=== PATIENT | male | born 1955 | race Caucasian/White ===

== ENCOUNTER 2016-09-17 12:41 | Emergency (ER) | payer OTHER ==
[2016-09-17 13:06] VITALS: RESP 16; TEMP 97.2
--- NOTE | 2016-09-17 15:40 | PDOC ---
General Adult HPI - General Chief Complaint: General Medical Stated Complaint: ran out of medications Date Seen by Provider: 09/17/16 Time Seen by Provider: 12:50 Source: POSITIVE: Patient Exam Limitations: POSITIVE: No limitations Nurse's Notes Reviewed & Considered: Yes - History of Present Illness Initial Comment: The patient is a 60-year-old male. He states he has just moved to [place] from [place]. He takes a variety of medications for depression and back pain, including gabapentin 60 mg twice daily, Depakote 500 mg 3 times daily, aspirin 81 mg daily, Flexeril 5 mg at night, venlafaxine 75 mg tablets, 2 in the morning and 3 in the evening, trazodone 100 mg at night and Nexium in the morning. He states he has a history of GERD. He states he may possibly have a seizure disorder. Patient states that he ran out of his venlafaxine and Flexeril and requests a refill in quantities sufficient for a few days until he can follow-up with a primary care provider. He states he is asymptomatic at this time. He simply wants a refill of his venlafaxine on Flexeril as above. Have you received a tetanus shot in the past 10 years?: Yes Body Location Affected: REPORTS: Other (As above) Timing: REPORTS: Other (Patient asymptomatic at this time.) Duration: Other (Out of his prescriptions as above for 1 day) Quality: REPORTS: Other (No pain anywhere) Context: DENIES: None, Sitting, Standing, Activity, Emotional stress, Coughing, Recent Trauma, Recent Surgery, Sleep, Rest, Lifting, Turning, Bending, Fall, Near Fall, Other Modifying Factors: worse with: Nothing, Analgesics, Antacids, Breathing, Coughing, Defecating, Vomiting, Eating, Exercise, Lying down, Urinating, Palpation, Movement, Rest, Upright Position, Walking, Remaining Still, Other Similar Symptoms Previously: No Recent Care Received: REPORTS: Denies Any Prior Injuries Related to Current Complaint?: No - Patient Home Medications Home Medications: Home Medications Aspirin [Aspir-Low] 81 mg PO DAILY 09/17/16 Cyclobenzaprine HCl [Flexeril] 5 mg PO BEDTIME #5 tablet 09/17/16 Cyclobenzaprine HCl [Flexeril] 5 mg PO BEDTIME PRN 09/17/16 Divalproex Sodium [Depakote] 500 mg PO TID 09/17/16 Esomeprazole Magnesium [Nexium 24Hr] 22.3 mg PO DAILY 09/17/16 Trazodone HCl 100 mg PO BEDTIME PRN 09/17/16 Venlafaxine HCl 75 mg PO DAILY 09/17/16 Venlafaxine HCl 75 mg PO Q12H #25 tablet 09/17/16 - Patient Allergies Allergies/Adverse Reactions: Allergies Allergy/AdvReac Type Severity Reaction Status Date / Time No Known Allergies Allergy Unverified 09/17/16 13:00 Past Medical History - heen HEENT History: Denies History Cardiovascular History: Denies History Respiratory History: Denies History Gastrointestinal History: GERD Genitourinary History: Denies History Endocrine History: Denies History Musculoskeletal History: Arthritis, Back Pain Neurological History: Seizures Blood Disorders: Denies History Psychiatric History: Depression History of Sexually Transmitted Diseases: No Male Reproductive History: Denies History Cancer History: Other (please comment) In Past Year Been Physically Harmed or Verbally Threatened: No History of MDRO: No Tobacco Use: Current Every Day Smoker Alcohol Use: Sober Substance Use Type: Other (please comment) Previous Surgical History: Yes Type / Date of Surgery: RIGHT KNEE SCOPE X 2, TONSILS, BACK SURGERY, BLADDER SURGERY (FOR CANCER) Significant Family History: No pertinent family hx Past Medical History Reviewed: Reviewed - No Changes ROS - Limitations ROS Limitations: No Limitations Constitution: REPORTS: Denies Symptoms Cardiovascular: REPORTS: Denies Cardiac Symptoms Respiratory: REPORTS: Denies Resp Symptoms Neurological: REPORTS: Denies Neuro Symptoms Gastrointestinal: REPORTS: Denies GI Symptoms Endocrine: REPORTS: Denies Symptoms Musculoskeletal: REPORTS: Denies MS Symptoms Genitourinary: REPORTS: Denies Symptoms Eyes: REPORTS: Denies Symptoms ENT: REPORTS: Denies Symptoms Skin: REPORTS: Denies Skin Symptoms Lympathic: REPORTS: Denies Lympathic Symptoms Immunologic: POSITIVE: Denies Symptoms Psychiatric: POSITIVE: Denies Psych Symptoms General Adult Exam - General Appearance General Appearance: POSITIVE: Alert, Cooperative, No Acute Distress, No Evidence of Trauma - HEENT HEENT: POSITIVE: Head Inspection Nml, Eyes Inspection Nml, Ears Inspection Nml, Nose Inspection Nml, Oral/Dental Inspect. Nml, Pharynx Inspect. 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 Tested, Motor Normal, Sensation Normal, 5, 6 General Adult Progress - Patient's Progress Pain Medication Addressed: POSITIVE: Not Applicable School/Work Release Addressed: POSITIVE: Not Applicable Re-Examine Time: 13:10 Status: POSITIVE: Unchanged Antibiotics Given: No - Consult Counseled: POSITIVE: Patient, RE: DX, RE: Need for F/U Patient Care Time - Estimated PCT Patient Care Time (In Minutes): 18 Vital Signs - Recent Vital Signs Vital Signs: Vital Signs (Last 8 hours) Temp Pulse Resp BP Pulse Ox 09/17/16 12:54 97.2 F 96 16 120/100 95 - VS Reviewed Vital Signs Reviewed: Yes Discharge Clinical Impression: Encounter for medication refill Discharge Disposition: Discharged to Home Condition: Stable Prescriptions / Orders: Cyclobenzaprine HCl [Flexeril] 5 mg PO BEDTIME #5 tablet Venlafaxine HCl 75 mg PO Q12H #25 tablet Patient Instructions Given at Discharge: Depression (ED), Chronic Back Pain (ED ) Additional Instructions: Your venlafaxine and cyclobenzaprine have been refilled for 5 days. Please follow-up with your primary care provider before 5 days from now for further medication refills. Return here anytime if condition worsens in any way. Follow Up With: NONE,NONE [Primary Care Provider] - (Instructions as above. Return as necessary.)
== END 2016-09-17 13:14 | disposition home or self-care (01) ==
LOC: ER 12:41
DX: Z76.0 Encounter for issue of repeat prescription (principal)
CPT/HCPCS: 99282

== ENCOUNTER → 2016-09-24 | Outpatient (CLI) | payer OTHER | LOC: MMPC 11:11 | PROVIDERS: ATTEND Internal Medicine | DX: R19.7 Diarrhea, unspecified (principal); E66.9 Obesity, unspecified; R12 Heartburn; G40.909 Epilepsy, unspecified, not intractable, without status epilepticus; M54.5 Low back pain; G47.09 Other insomnia; F41.8 Other specified anxiety disorders | CPT/HCPCS: 99204; G0463 ==

== ENCOUNTER → 2016-09-28 | Outpatient (CLI) | payer OTHER ==
[2016-09-28 10:45] LABS: BASOPHILS # (AUTO) 0.11 10*3/UL; BASOPHILS % (AUTO) 1.1 % (0-1); EOSINOPHILS % (AUTO) 1.1 % (0-8); HEMATOCRIT 46.7 % (42.0-52.0); HEMOGLOBIN 16.2 g/dL (14.0-18.0); IMM GRAN % (AUTO) 0.4 % (0-5); IMM GRAN# (AUTO) 0.04 10*3/UL; LYMPHOCYTES # (AUTO) 2.39 10*3/uL; LYMPHOCYTES % (AUTO) 23.4 % (10-50); MEAN CORPUSCULAR HEMOGLOBIN 31.6 PG (27-31); MEAN CORPUSCULAR HGB CONC 34.7 g/dL (33-37); MEAN PLATELET VOLUME 10.5 FL (7.4-12.2); MONOCYTES # (AUTO) 0.82 10*3/UL (0.3-0.8); NEUTROPHILS # (AUTO) 6.73 10*3/UL; RDW COEFFICIENT OF VARIATION 13.9 % (11.5-14.5); RED BLOOD COUNT 5.13 10^6/uL (4.70-6.10)
[2016-09-28 10:50] LABS: PLATELET MORPHOLOGY COMMENT NORMAL MORPHOLOGY (NORM)
[2016-09-28 10:57] LABS: ASPARTATE AMINO TRANSFERASE 22 IU/L (21-57); BILIRUBIN,TOTAL 0.5 mg/dL (0.3-1.2); BLOOD UREA NITROGEN 19 mg/dL (7-22); BUN/CREATININE RATIO 21.11 (6-20); CALCIUM 9.5 mg/dL (8.7-10.7); CHLORIDE 106 meq/L (98-112); CREATININE 0.9 mg/dL (0.70-1.50); EST GLOMERULAR FILTRATION > 60 (>60 ml/min/1.73m(2)); GLUCOSE 105 mg/dL (78-110); HDL CHOLESTEROL 68 mg/dL (40-150); POTASSIUM 4.5 meq/L (3.8-5.2); SODIUM 141 meq/L (135-145); TOTAL PROTEIN 7.9 g/dL (6.1-8.0); TRIGLYCERIDES 254 mg/dL (44-200)
[2016-09-28 14:39] LABS: BILIRUBIN,URINE NEGATIVE (NEG); CLARITY,URINE CLEAR (CLEAR); GLUCOSE, URINE (UA) NEGATIVE (NEG); LEUKOCYTE ESTERASE ,URINE NEGATIVE (NEG); NITRATE,URINE NEGATIVE (NEG); OCCULT BLOOD,URINE NEGATIVE (NEG); PROTEIN,URINE NEGATIVE (NEG); UROBILINOGEN,URINE 0.2 mg/dL (0.2)
[2016-09-28 14:47] LABS: URINE SAMPLE TYPE CLEAN CATCH URINE
== END ==
LOC: LAB 10:20
PROVIDERS: ATTEND Internal Medicine
DX: R19.7 Diarrhea, unspecified (principal); R12 Heartburn; G40.909 Epilepsy, unspecified, not intractable, without status epilepticus; E66.9 Obesity, unspecified; F17.210 Nicotine dependence, cigarettes, uncomplicated
CPT/HCPCS: 36415; 80053; 80061; 80164; 81001; 84443; 85025

== ENCOUNTER → 2016-11-07 | Outpatient (CLI) | payer OTHER | LOC: MMPC 11:11 | PROVIDERS: ATTEND Internal Medicine | DX: G40.909 Epilepsy, unspecified, not intractable, without status epilepticus (principal); F98.8 Other specified behavioral and emotional disorders with onset usually occurring in childhood and adolescence; M54.5 Low back pain; F41.9 Anxiety disorder, unspecified | CPT/HCPCS: 99213 ==

== ENCOUNTER → 2016-11-14 | Outpatient (CLI) | payer OTHER ==
--- NOTE | 2016-11-14 15:07 | DI ---
MRI LUMBAR SPINE SCAN WITHOUT IV CONTRAST, 11/14/2016 12:33 PM: Clinical History: History of laminectomy. Previous Exam: None. Technique: Sagittal and axial T2 weighted; sagittal T1 weighted and T2 STIR; and axial PD. The vertebral bodies are of normal height and size. The patient has had a laminectomy at L4 although at least half of the spinous process is still present. There is moderate to moderately severe disc sp sin narrowing from L2-3 through L5-S1 and all lumbar disc spaces show desiccation change. The cord te rminates at L1, and the conus medullaris is normal. The T10-11 through T12-L1 disc spaces are normal. There is a mild circumferentially bulging but not herniated disc at L1-2 without canal or neural for aminal stenosis. L2-3 and L3-4 both have circumferentially bulging but not herniated discs and modera te hypertrophic changes of the apophyseal joints and ligamentum flavum. Both levels show severe spina l canal stenosis without significant neural foraminal stenosis. L4-5 has a focal extruded disc fragme nt on the right side that has distended inferior to the disc space behind the body of L5 and into the right lateral recess where it does impinge on the right L5 nerve root. In addition, there is a centr al disc bulge along with hypertrophic changes of the apophyseal joints and right ligamentum flavum th at produces spinal canal stenosis. There is no significant neural foraminal stenosis. L5-S1 has a cir cumferentially bulging but not herniated disc without canal stenosis. There is bilateral neural tabitha inal stenosis. Readin. There is a focal right-sided disc herniation at L4-5 and the fragment distended inferiorly behind the L5 vertebral body into the right lateral recess were it is causing impingement on the right S1 n erve root. There is also spinal canal stenosis but without neural foraminal stenosis. There has been a partial left laminectomy at this level. 2. L2-3 and L3-4 have a circumferentially bulging but not herniated discs with hypertrophic changes of the apophyseal joints and ligamentum flavum producing severe spinal canal stenosis at both levels. There is no neural foraminal stenosis at either level. 3. L1-2 and L5-S1 have bulging discs without canal stenosis. There is no neural foraminal stenosis a t L1-2 and there is bilateral neural foraminal stenosis at L5-S1. 4. The disc spaces from T10-11 through T12-L1 are normal.
== END ==
LOC: MRI 11-10 09:51
PROVIDERS: ATTEND Internal Medicine
DX: M54.5 Low back pain (principal); M51.26 Other intervertebral disc displacement, lumbar region; M47.816 Spondylosis without myelopathy or radiculopathy, lumbar region; M47.817 Spondylosis without myelopathy or radiculopathy, lumbosacral region
CPT/HCPCS: 72148

== ENCOUNTER → 2016-12-03 | Outpatient (CLI) | payer OTHER | LOC: MMPC 11:11 | PROVIDERS: ATTEND Internal Medicine | DX: M48.07 Spinal stenosis, lumbosacral region (principal); M51.37 Other intervertebral disc degeneration, lumbosacral region; F98.8 Other specified behavioral and emotional disorders with onset usually occurring in childhood and adolescence | CPT/HCPCS: 99213; G0463 ==

== ENCOUNTER → 2017-02-18 | Outpatient (CLI) | payer OTHER | LOC: MMPC 10:00 | PROVIDERS: ATTEND Internal Medicine | DX: M48.07 Spinal stenosis, lumbosacral region (principal); M51.37 Other intervertebral disc degeneration, lumbosacral region; F98.8 Other specified behavioral and emotional disorders with onset usually occurring in childhood and adolescence; Z86.69 Personal history of other diseases of the nervous system and sense organs | CPT/HCPCS: 99213; G0463 ==

== ENCOUNTER 2018-07-29 08:28 | Inpatient (IN) ==
[2018-07-29] MEDS ORDERED: MECLIZINE 25 MG CHEWABLE TABLET PO ONE (08:38)
--- NOTE | 2018-07-29 08:49 | EKG ---
[address] [address] Measurements Intervals [place] Rate: 89 P: 59 AL: 150 QRS: 53 QRSD: 92 T: 51 QT: 334 QTc: 380 Interpretive Statements SINUS RHYTHM WITH SINUS ARRHYTHMIA Compared to ECG 07/18/2018 20:43:29 No significant changes Electronically Signed On 07-30-18 08:33:23 MST by Greg Augustine MD [email or web address]
--- NOTE | 2018-07-29 08:49 | PDOC ---
Fall HPI - General Chief Complaint: Fall Stated Complaint: fall, hit head on coffee table Date Seen by Provider: 07/29/18 Time Seen by Provider: 08:35 Source: POSITIVE: Patient, EMS Exam Limitations: POSITIVE: No limitations Nurse's Notes Reviewed & Considered: Yes EMS Report Reviewed & Considered: Verbal - History of Present Illness Initial Comments: The patient is a 62-year-old male who is brought to the emergency department by ambulance with multiple complaints. He apparently has been having ongoing issues with dizziness for the past several months. This is resulted in several falls recently. He states that he was very dizzy this morning and fell hitting the left side of his head. He states he has worsening neck and upper back pain as well as chronic low back pain. He also has some mild right sided chest wall pain. He was recently seen here in the emergency department and was told that he was diabetic and had hypothyroidism. He was also told that he had renal problems. He has not yet followed up with his primary care provider since he has been here because he has not "felt well". He denies any current headache. He reports blurred vision at night. He denies any current chest pain other than the right-sided chest wall pain or shortness of breath. He denies any numbness or weakness in his extremities other than he has difficulty moving his right arm secondary to her shoulder problem. He denies any current congestion or sore throat. He has not had any fever. Have you received a tetanus shot in the past 10 years?: Unknown - Patient Home Medications Home Medications: Home Medications Aspirin [Aspir-Low] 81 mg PO DAILY 09/17/16 Multivit-Min/Iron Fum/Folic AC [Monocaps Tablet] 1 ea PO DAILY tab 11/06/16 cyclobenzaprine 10 mg tablet 10 mg PO TID #90 tab 06/26/18 divalproex 500 mg tablet,delayed release 500 mg PO TID #270 tab 06/26/18 gabapentin 600 mg tablet 1,200 mg PO TID #540 tab 06/26/18 venlafaxine 75 mg tablet See Rx Instructions .ROUTE .COMPLEX #150 tablet 06/30/18 oxycodone-aspirin 4.8355 mg-325 mg tablet 1 tab PO TID PRN #90 tab 07/03/18 - Patient Allergies Allergies/Adverse Reactions: Allergies Allergy/AdvReac Type Severity Reaction Status Date / Time hydromorphone Allergy NAUSEA Verified 07/29/18 08:32 PAIN CONTRACT Allergy Unknown NOT Uncoded 07/29/18 08:29 APPLICABLE Past Medical History - heen HEENT History: Denies History Cardiovascular History: Denies History Respiratory History: Denies History Gastrointestinal History: GERD Genitourinary History: Other (please comment) Additional Genitourinary History: SURGERY FOR BLADDER CANCER Endocrine History: Type 2 Diabetes (diet), Hypothyroidism Musculoskeletal History: Arthritis, Back Pain Neurological History: Denies History Blood Disorders: Denies History Psychiatric History: Depression History of Sexually Transmitted Diseases: No Cancer History: Denies History In Past Year Been Physically Harmed or Verbally Threatened: No History of MDRO: No Tobacco Use: Current Every Day Smoker Alcohol Use: Sober In the Past 12 Months, Have Used or Abuse Any Substance: None Previous Surgical History: Yes Type / Date of Surgery: RIGHT KNEE SCOPE X 2, TONSILS, BACK SURGERY, BLADDER SURGERY (FOR CANCER) Significant Family History: No pertinent family hx Past Medical History Reviewed: Reviewed - No Changes ROS - Limitations ROS Limitations: No Limitations Constitution: DENIES: Fever Cardiovascular: DENIES: Chest Pain, Heart Palpitations, Edema Respiratory: REPORTS: Denies Resp Symptoms. DENIES: Shortness Of Breath Neurological: REPORTS: Dizziness. DENIES: Headache (No current headache), Numbness, Weakness Gastrointestinal: DENIES: Abdominal Pain Musculoskeletal: REPORTS: Back Pain, Neck Pain Genitourinary: REPORTS: Denies Symptoms Eyes: REPORTS: Vision Changes (Blurred vision at night) ENT: REPORTS: Denies Symptoms Skin: DENIES: Rash Fall Physical Exam - General Appearance General Appearance: POSITIVE: Alert, Cooperative, No Acute Distress - HEENT HEENT: POSITIVE: Eyes Inspection Nml, Ears Inspection Nml, Nose Inspection Nml, Pharynx Inspect. Nml, PERRL, EOMI, Other (He does have a small contusion to the left cheek with no bony deformity) - Neck Neck: POSITIVE: Trachea Midline, Other (He does have tenderness along the entire aspect of his neck, thoracic and lumbar spine) - Respiratory / CVS Respiratory / CVS: POSITIVE: Breath Sounds Normal, No Respiratory Distress, Heart Sounds Normal, Regular Rate/Rhythm, Other (Some mild tenderness to the right lateral chest wall) Peripheral Pulses: Dorsalis-pedis (R): 2+, Dorsalis-pedis (L): 2+ - Abdomen Abdomen: Soft: (All Quadrants), Denies Tenderness: (All Quadrants), No Distention: (All Quadrants) - Neuro / Psych 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 Tenderness (He describes vertebral tenderness along the entire aspect of his back) - Extremities Extremity Assessment: Non-Tender: (ALL) Fall Progress - Results Reviewed by me CBC and BMP: 07/29/18 08:50 Lab Results:: Laboratory Results 07/29/18 08:50 WBC 7.79 RBC 4.63 L Hgb 14.6 Hct 42.6 MCV 92.0 H MCH 31.5 H MCHC 34.3 RDW Std Deviation 45.0 RDW Coeff of Darci 13.5 Plt Count 190 MPV 11.0 Immature Gran % (Auto) 0.9 Neut % (Auto) 60.3 Lymph % (Auto) 25.0 [place] % (Auto) 10.3 Eos % (Auto) 2.7 Baso % (Auto) 0.8 Immature Gran # (Auto) 0.07 Neut # (Auto) 4.70 Lymph # (Auto) 1.95 [place] # (Auto) 0.80 Eos # (Auto) 0.21 Baso # (Auto) 0.06 WBC Morphology Comment Normal morphology Plt Morphology Comment Normal morphology RBC Morph Comment Normal morphology - Patient's Progress MDM / ED Course: The patient's vital signs were stable on arrival. His EKG shows normal sinus rhythm with no acute ST segment or T-wave changes. The patient was given [address] scan of the head and cervical spine was ordered. Chest x-ray and lumbar spine x-rays were ordered. Blood work including CBC, CMP, magnesium, troponin, etoh and urine studies were ordered as well. Patient care was transferred to Dr. Acevedo at 0900 with studies pending. Patient Care Time - Estimated PCT Patient Care Time (In Minutes): 15 Vital Signs - VS Reviewed Vital Signs Reviewed: Yes Discharge Clinical Impression: Fall, Neck pain, Back pain, Vertigo Condition: Stable Follow Up With: BRENDEN RAMIREZ [Primary Care Provider] -
[2018-07-29] MEDS: Sodium Chloride 0.9% 1,000 ML PRIMARY IV ONE ×2 (08:53→09:00)
[2018-07-29 09:00] LABS: BASOPHILS # (AUTO) 0.06 10*3/UL; BASOPHILS % (AUTO) 0.8 % (0-1); EOSINOPHILS # (AUTO) 0.21 10*3/UL; EOSINOPHILS % (AUTO) 2.7 % (0-8); Hematocrit [HCT] 42.6 % (42.0-52.0); Hemoglobin [HGB] 14.6 g/dL (14.0-18.0); LYMPHOCYTES # (AUTO) 1.95 10*3/uL; MEAN CORPUSCULAR HEMOGLOBIN 31.5 PG (27-31); MEAN CORPUSCULAR HGB CONC 34.3 g/dL (33-37); MONOCYTES % (AUTO) 10.3 % (5-15); NEUTROPHILS % (AUTO) 60.3 % (50-80); RED BLOOD COUNT 4.63 10^6/uL (4.70-6.10)
[2018-07-29 09:01] LABS: PLATELET MORPHOLOGY COMMENT NORMAL MORPHOLOGY (NORM); RBC MORPHOLOGY COMMENT NORMAL MORPHOLOGY (NORM); WBC MORPHOLOGY COMMENT NORMAL MORPHOLOGY (NORM)
[2018-07-29 09:15] LABS: BLOOD UREA NITROGEN 21 mg/dL (7-22); BUN/CREATININE RATIO 26.25 (6-20); SERUM ALBUMIN 4.2 g/dL (3.5-4.8)
[2018-07-29 10:01] LABS: BILIRUBIN,URINE NEGATIVE (NEG); CLARITY,URINE CLEAR (CLEAR); COLOR,URINE YELLOW (Y); GLUCOSE, URINE (UA) 500 mg/dL (NEG); OCCULT BLOOD,URINE NEGATIVE (NEG); PROTEIN,URINE NEGATIVE (NEG)
[2018-07-29 10:06] LABS: URINE SAMPLE TYPE CLEAN CATCH URINE
[2018-07-29 10:13] LABS: AMPHETAMINE SCREEN NEGATIVE (NEG); CANNABINOID SCREEN,URINE NEGATIVE (NEG); COCAINE SCREEN NEGATIVE (NEG); METHADONE URINE SCREEN NEGATIVE (NEG); METHAMPHETAMINES SCREEN,URINE NEGATIVE (NEG); OPIATE SCREEN,URINE NEGATIVE (NEG)
--- NOTE | 2018-07-29 10:13 | DI ---
EXAM: XR Chest, 2 Views CLINICAL HISTORY: Fall, complaining of head and neck pain and generalized back pain. TECHNIQUE: Frontal and lateral views of the chest. COMPARISON: Chest x-ray dated 07/18/18 FINDINGS: Lungs: Unremarkable. The lungs appear clear. No focal consolidation. Pleural space: Unremarkable. The costophrenic angle are sharp. No visible pneumothorax. Heart: Unremarkable. No cardiomegaly. Mediastinum: Unremarkable. Bones/joints: Unremarkable. IMPRESSION: No acute findings.
--- NOTE | 2018-07-29 10:14 | DI ---
EXAM: XR Lumbar Spine, 2 or 3 Views CLINICAL HISTORY: Fall, complaining of head and neck pain and generalized back pain TECHNIQUE: Frontal and lateral views of the lumbar spine. COMPARISON: No relevant prior studies available. FINDINGS: Vertebrae: Unremarkable. 5 [id number] lumbar vertebral segments are noted. Lumbar vertebral body heights are preserved. No visible fracture. Normal alignment. Disc spaces: Multilevel degenerative changes throughout the lumbar spine, with disc space loss and endplate osteophytes, most prominent at L4-5 and L5-S1. Soft tissues: Unremarkable. IMPRESSION: Multilevel degenerative changes throughout the lumbar spine, most prominent at L4-5 and L5-S1.
--- NOTE | 2018-07-29 10:15 | DI ---
EXAM: CT Head Without Intravenous Contrast CLINICAL HISTORY: Fall, complaining of head and neck pain and generalized back pain TECHNIQUE: Axial computed tomography images of the head/brain without intravenous contrast. COMPARISON: No relevant prior studies available. FINDINGS: Brain: Unremarkable. No evidence of acute intracranial hemorrhage. No significant white matter disease. No edema. No mass effect or midline shift. Ventricles: Unremarkable. No ventriculomegaly. Bones/joints: Unremarkable. No depressed skull fracture. Soft tissues: Unremarkable. Sinuses: Unremarkable as visualized. No acute sinusitis. Mastoid air cells: Unremarkable as visualized. No mastoid effusion. IMPRESSION: No acute intracranial findings.
--- NOTE | 2018-07-29 10:18 | DI ---
EXAM: CT Cervical Spine Without Intravenous Contrast CLINICAL HISTORY: Fall, complaining of head and neck pain and generalized back pain TECHNIQUE: Axial computed tomography images of the cervical spine without intravenous contrast. COMPARISON: No relevant prior studies available. FINDINGS: Vertebrae: 3 mm well-corticated ossific fragment anterior to the C3-4 interspace likely represents a small discontinuous osteophyte. No visible displaced fracture. Cervical body heights are preserved. The atlantodens interval appears unremarkable. Discs/spinal canal/neural foramina: Multilevel degenerative changes throughout the cervical spine with disc space loss, facet and uncovertebral hypertrophy, and endplate osteophytes, varying degrees of central and foraminal stenosis. Soft tissues: Incidental note of ligamentous calcifications adjacent to the dens. Mild mucosal thickening noted in bilateral maxillary sinuses. IMPRESSION: 1. No evidence of acute cervical spine fracture or malalignment. 2. Multilevel degenerative changes throughout the cervical spine with varying degrees of central and foraminal stenosis.
--- NOTE | 2018-07-29 10:47 | PDOC ---
HPI - History of Present Illness History of Present Illness: Is a very nice 62-year-old gentleman he's been having vertigo and dizziness over the last several months has been seen in the ER in June with similar compl aints. States he has had multiple episodes of dizziness and vertigo over 30 without losing consciousness last the 2 weeks. In the ER he had a CT scan of the head and cervical spine CT and lumbar spine with no acute fractures or findings is no weakness and is afebrile the imbalance MANEUVERS NEGATIVE IN THE ER MOST LIKELY NOT BENIGN POSITIONAL VERTIGO Past Medical History Medical History: Citizen Of [place], seizure disorder Tobacco Use: Current Every Day Smoker In the Past 12 Months, Have Used or Abuse Any of the Following Substance: None Medication / Allergies Home Medications: Home Medications Medication Instructions Recorded Confirmed Type Aspirin [Aspir-Low] 81 mg PO DAILY 09/17/16 07/29/18 History Multivit-Min/Iron Fum/Folic AC 1 ea PO DAILY tab 11/06/16 07/29/18 History [Monocaps Tablet] cyclobenzaprine 10 mg tablet 10 mg PO TID #90 tab 06/26/18 07/29/18 Rx divalproex 500 mg tablet,delayed 500 mg PO TID #270 tab 06/26/18 07/29/18 Rx release gabapentin 600 mg tablet 1,200 mg PO TID #540 tab 06/26/18 07/29/18 Rx venlafaxine 75 mg tablet See Rx Instructions .ROUTE 06/30/18 07/29/18 Rx .COMPLEX #150 tablet oxycodone-aspirin 4.8355 mg-325 mg 1 tab PO TID PRN #90 tab 07/03/18 07/29/18 Rx tablet Allergies/Adverse Reactions: Allergies Allergy/AdvReac Type Severity Reaction Status Date / Time hydromorphone Allergy NAUSEA Verified 07/29/18 08:32 PAIN CONTRACT Allergy Unknown NOT Uncoded 07/29/18 08:29 APPLICABLE Review of Systems - Review of Systems All Systems: Reviewed & No Additional Complaints Except as Stated - Respiratory Respiratory: DENIES: Negative System Review, Cough, Sputum, Dyspnea At Rest, Dyspnea with Exertion, Pleuritic Pain, Hemoptysis, Wheezing, Other, See HPI - Cardiovascular Cardiovascular: DENIES: Negative System Review, Chest Pain, Edema, Syncope, Palpitations, Orthopnea, Paroxysmal Nocturnal Dyspnea, Other, See HPI - Neurological Neurologic: REPORTS: Dizziness Exam - Vitals Vital Signs: Vital Signs Temperature 96.8 F Temperature Source Temporal Artery Scan Pulse Rate [Pulse Oximeter] 89 Pulse Rate 79 Respiratory Rate 20 Blood Pressure [Left Arm] 124/90 Pulse Ox 95 Height 5 ft 10 in Weight 245 lb - General General Appearance: No Acute Distress, Cooperative - Head Head Exam: Normal Inspection, Normocephalic, Atraumatic - Eye Eye Exam: POSITIVE: Normal Appearance, PERRL, EOMI, No Scleral Icterus - ENT ENT Exam: POSITIVE: Mucous Membranes Moist - Neck Neck Exam: Normal Inspection, Full ROM, No Tenderness, No Lymphadenopathy, No Thyromegaly, JVP is not Raised - Respiratory Respiratory Exam: POSITIVE: Clear to Auscultation - Bilaterally, Breathing Non Labored, Normal To Percussion, Normal to Percussion and Palpation - GI/Abdominal GI/Abdominal Exam: POSITIVE: Normal Bowel Sounds, Non Tender, Non Distended, Soft, No Masses, No Hepatomegaly, No Splenomegaly, No Organomegaly - Extremities Extremities Exam: POSITIVE: No Clubbing Present, No Edema Present - Neurological Neurological Exam: POSITIVE: Alert, Oriented x 3, No Facial Droop, Speech Intact / Clear, Abnormal Gait Additional Neurological Exam Details: Romberg is negative - Psychiatric Psychiatric Exam: POSITIVE: Normal Affect, Normal Mood Results - Labs CBC and BMP: 07/29/18 08:50 07/29/18 08:50 Assessment and Plan - Patient Problems (1) Vertigo Current Visit: Yes Status: Acute Comment: Will order MRI of the patient's head rule out cerebellar stroke will discuss with neurologist correctional case manager at [facility] I talked to Dr. Vásquez I presented the patient finger to nose her negative Romberg is negative I talked to him also intact patient is coherent and alert and oriented 3 no need for MRI today can wait till tomorrow we have excluded cerebellar hemorrhage with the CT scan of the head Code(s): R42 - Dizziness and giddiness
[2018-07-29] MEDS ORDERED: LIDOCAINE W/ SODIUM BICARB 0.5 ML SYR SUBD PRN (11:13)
[2018-07-29] MEDS: Sodium Chloride 0.9% 1,000 ML PRIMARY IV SCH ×2 (14:15→22:26)
[2018-07-29] MEDS: GABAPENTIN 400 MG CAPSULE PO SCH ×2 (15:33→21:02)
[2018-07-29] MEDS: DIVALPROEX SODIUM 250 MG TABLET PO SCH ×2 (15:33→21:03)
--- NOTE | 2018-07-29 23:33 | PDOC ---
General Adult HPI - General Chief Complaint: Fall Stated Complaint: fall, hit head on coffee table Date Seen by Provider: 07/29/18 Time Seen by Provider: 09:00 Source: POSITIVE: RN/MD, Old records Exam Limitations: POSITIVE: No limitations Nurse's Notes Reviewed & Considered: Yes - History of Present Illness Initial Comment: The patient is a 62-year-old male who is brought to the emergency room by ambulance. He states that he has been "falling and losing my balance" for the past 2-3 months. He states that he has lost his balance an estimated 50 times during this period. 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 He states that he became very unsteady and fell, striking the left side of his face on a table. He states that for about 30 minutes he was not able to get up but he finally managed to pull himself up using a bed to support himself. At which time he called the ambulance. He denies any associated head, chest or abdominal pain. He was seen in the emergency room for a similar episode on 19 July. He was diagnosed with vertigo at that time. Patient does state that he does sometimes have a sense of movement associated with his falls. Patient states he has a history of a seizure disorder and his last seizure was 1-1/2 years ago he takes anticonvulsant medications. He states he had no difficulty speaking or swallowing. He did not notice any weakness to any extremity. On presentation to the emergency room his gait is unsteady. The patient was initially seen and evaluated by Dr. Hill, who was the emergency room physician on duty when the patient came into the emergency room. Please refer to his transfer note. 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) Severity: Moderate Quality: REPORTS: Other (Patient denies any pain at this time) Context: REPORTS: Standing Modifying Factors: improves with: Nothing Similar Symptoms Previously: Yes Recent Care Received: REPORTS: Recently Seen, Treated by MD (As above) Any Prior Injuries Related to Current Complaint?: No - Patient Home Medications Home Medications: Home Medications Aspirin [Aspir-Low] 81 mg PO DAILY 09/17/16 Multivit-Min/Iron Fum/Folic AC [Monocaps Tablet] 1 ea PO DAILY tab 11/06/16 cyclobenzaprine 10 mg tablet 10 mg PO TID #90 tab 06/26/18 divalproex 500 mg tablet,delayed release 500 mg PO TID #270 tab 06/26/18 gabapentin 600 mg tablet 1,200 mg PO TID #540 tab 06/26/18 venlafaxine 75 mg tablet See Rx Instructions .ROUTE .COMPLEX #150 tablet 06/30/18 oxycodone-aspirin 4.8355 mg-325 mg tablet 1 tab PO TID PRN #90 tab 07/03/18 - Patient Allergies Allergies/Adverse Reactions: Allergies Allergy/AdvReac Type Severity Reaction Status Date / Time hydromorphone Allergy NAUSEA Verified 07/29/18 11:49 PAIN CONTRACT Allergy Unknown NOT Uncoded 07/29/18 08:29 APPLICABLE Past Medical History - heen HEENT History: Denies History Cardiovascular History: Denies History Respiratory History: Denies History Gastrointestinal History: GERD Genitourinary History: Other (please comment) Additional Genitourinary History: SURGERY FOR BLADDER CANCER Endocrine History: Type 2 Diabetes (diet) Musculoskeletal History: Arthritis, Back Pain Neurological History: Seizures Blood Disorders: Denies History Psychiatric History: Depression History of Sexually Transmitted Diseases: No Cancer History: Other (please comment) In Past Year Been Physically Harmed or Verbally Threatened: No History of MDRO: No Tobacco Use: Current Every Day Smoker Alcohol Use: Sober In the Past 12 Months, Have Used or Abuse Any Substance: None Previous Surgical History: Yes Type / Date of Surgery: RIGHT KNEE SCOPE X 2, TONSILS, BACK SURGERY, BLADDER SURGERY (FOR CANCER) Significant Family History: Heart disease Past Medical History Reviewed: Reviewed - No Changes ROS - Limitations ROS Limitations: No Limitations Constitution: REPORTS: Denies Symptoms Cardiovascular: REPORTS: Denies Cardiac Symptoms Respiratory: REPORTS: Denies Resp Symptoms Neurological: REPORTS: Difficulty Walking Gastrointestinal: REPORTS: Denies GI Symptoms Endocrine: REPORTS: Denies Symptoms Musculoskeletal: REPORTS: Back Pain (Patient has chronic low back pain; he states his pain is worse since his fall.) Genitourinary: REPORTS: Denies Symptoms Eyes: REPORTS: Denies Symptoms ENT: REPORTS: Denies Symptoms Skin: REPORTS: Other (Small contusion left side of face) Lympathic: REPORTS: Denies Lympathic Symptoms Immunologic: POSITIVE: Denies Symptoms Psychiatric: POSITIVE: Denies Psych Symptoms General Adult Exam - General Appearance General Appearance: POSITIVE: Alert, Cooperative, No Acute Distress. NEGATIVE: No Evidence of Trauma (Small contusion left side of face) - HEENT HEENT: POSITIVE: Head Inspection Nml, Eyes Inspection Nml, Ears Inspection Nml, Nose Inspection Nml, Oral/Dental Inspect. Nml, Pharynx Inspect. Nml, PERRL, EO SD, Other (No abnormal nystagmus noted. Negative [place]-Hallpike test) - Pupils Pupil Size: 4 mm: Bilateral (PERRLA) - Neck Neck: POSITIVE: Normal Inspection, Thyroid Normal - Respiratory Respiratory: POSITIVE: No Respiratory Distress, Breath Sounds Normal, Chest Non- Tender - Cardiovascular Cardiovascular: POSITIVE: Regular Rate & Rhythm, No Murmur, No Gallop, PMI Normal Peripheral Pulses: Radial (R): 2+, Radial (L): 2+ - Abdomen Abdomen: Soft: (All Quadrants), Normal Bowel Sounds: (All Quadrants), Denies Tenderness: (All Quadrants), No Splenomegaly: (All Quadrants), No Hepatomegaly: (All Quadrants), No Guarding: (All Quadrants), No Rebound: (All Quadrants), No Palpable Pulse: (All Quadrants), No Palpabale Mass: (All Quadrants), No Distention: (All Quadrants), No Rigidity: (All Quadrants) - Back Back: POSITIVE: Lumbosacral Tenderness - Skin Skin: POSITIVE: Normal Color, Warm, Dry, No Rash, Other (Small contusion left side of face) - Extremities Extremity: Non-Tender: (All Extremities), Normal ROM: (All Extremities), Normal Inspection: (All Extremities) - Neurological / Psychological Neurological: POSITIVE: Affect Apporpriate, 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 I see no definite cerebellar signs, such as past pointing. No nystagmus.) Reflexes: Patellar (R): 1+, Patellar (L): 1+ Images - Head Head: 1 - Contusion - Complete Complete: 1 - Discomfort on palpation General Adult Progress - Results Reviewed by me Xrays/CTs/US Reviewed by me: Yes Discussed with Radiologist: Yes Radiology Findings: CT scan head shows "no acute intracranial findings ". CT scan cervical spine shows degenerative changes only. Lumbosacral spine shows degenerative changes. Chest x-ray is read as normal. Lab Results Reviewed by Me: Yes Lab Results:: Laboratory Results 07/29/18 07/29/18 07/29/18 08:50 08:50 08:50 WBC 7.79 RBC 4.63 L Hgb 14.6 Hct 42.6 MCV 92.0 H MCH 31.5 H MCHC 34.3 RDW Std Deviation 45.0 RDW Coeff of Darci 13.5 Plt Count 190 MPV 11.0 Immature Gran % (Auto) 0.9 Neut % (Auto) 60.3 Lymph % (Auto) 25.0 Bibb % (Auto) 10.3 Eos % (Auto) 2.7 Baso % (Auto) 0.8 Immature Gran # (Auto) 0.07 Neut # (Auto) 4.70 Lymph # (Auto) 1.95 Bibb # (Auto) 0.80 Eos # (Auto) 0.21 Baso # (Auto) 0.06 WBC Morphology Comment Normal morphology Plt Morphology Comment Normal morphology RBC Morph Comment Normal morphology Sodium 139 Potassium 4.7 Chloride 106 Carbon Dioxide 28 Anion Gap 5 BUN 21 Creatinine 0.8 Estimated GFR > 60 BUN/Creatinine Ratio 26.25 H Glucose 232 H Calculated Osmolality 297.0 H Calcium 8.8 Magnesium 2.2 Total Bilirubin 0.5 AST 68 H ALT 66 Alkaline Phosphatase 128 H Total Creatine Kinase 197 H Troponin I 0.012 C-Reactive Protein 1.2 H Total Protein 6.5 Albumin 4.2 Globulin 2.3 L Albumin/Globulin Ratio 1.80 Ur Collection Type Urine Color Urine Clarity Urine pH Ur Specific Register U Specif Grav (Refrac) Urine Protein Urine Glucose (UA) Urine Ketones Urine Occult Blood Urine Nitrate Urine Bilirubin Urine Urobilinogen Ur Leukocyte Esterase Ur Culture Indicated? Urine Opiates Screen Ur Buprenorphine Ur Oxycodone Screen Urine Methadone Screen Ur Propoxyphene Screen Barbiturate Screen U Tricyclic Antidepress Phencyclidine Screen Amphetamines Screen U Methamphetamines Scrn Benzodiazepines Screen Cocaine Screen U Marijuana (THC) Screen Serum Alcohol < 10 07/29/18 10:00 WBC RBC Hgb Hct MCV MCH MCHC RDW Std Deviation RDW Coeff of Darci Plt Count MPV Immature Gran % (Auto) Neut % (Auto) Lymph % (Auto) Bibb % (Auto) Eos % (Auto) Baso % (Auto) Immature Gran # (Auto) Neut # (Auto) Lymph # (Auto) Bibb # (Auto) Eos # (Auto) Baso # (Auto) WBC Morphology Comment Plt Morphology Comment RBC Morph Comment Sodium Potassium Chloride Carbon Dioxide Anion Gap BUN Creatinine Estimated GFR BUN/Creatinine Ratio Glucose Calculated Osmolality Calcium Magnesium Total Bilirubin AST ALT Alkaline Phosphatase Total Creatine Kinase Troponin I C-Reactive Protein Total Protein Albumin Globulin Albumin/Globulin Ratio Ur Collection Type Clean catch urine Urine Color Yellow Urine Clarity Clear Urine pH 7.0 Ur Specific Register 1.020 U Specif Grav (Refrac) 1.020 Urine Protein Negative Urine Glucose (UA) 500 Urine Ketones Negative Urine Occult Blood Negative Urine Nitrate Negative Urine Bilirubin Negative Urine Urobilinogen 1.0 Ur Leukocyte Esterase Negative Ur Culture Indicated? Culture not set Urine Opiates Screen Negative Ur Buprenorphine Negative Ur Oxycodone Screen Positive H Urine Methadone Screen Negative Ur Propoxyphene Screen Negative Barbiturate Screen Negative U Tricyclic Antidepress Negative Phencyclidine Screen Negative Amphetamines Screen Negative U Methamphetamines Scrn Negative Benzodiazepines Screen Negative Cocaine Screen Negative U Marijuana (THC) Screen Negative Serum Alcohol CBC and BMP: 07/29/18 08:50 07/29/18 08:50 EKG Interpreted/Reviewed By Me:: Yes (normal) EKG Interpretation:: POSITIVE: Normal Sinus Rhythm, Normal Rate, Normal Intervals, Normal [place], Normal QRS, Normal ST/T - Patient's Progress Pain Medication Addressed: POSITIVE: Not Applicable School/Work Release Addressed: POSITIVE: Not Applicable Re-Examine Time: 16:35 Re-Examine Comment: Advised the patient that are not sure why he is having his falls and gait instability. I believe patient needs an MRI of the brain. In view of the frequency of his falls, and hesitant to discharge patient, although discharge option was discussed with the patient. Contact was made with acquaintances for them to check in on the patient's . Case discussed with hospitalist on-call, Dr. Paz, and patient is admitted to the hospitalist for further evaluation and treatment. Status: POSITIVE: Unchanged, Re-Examined Antibiotics Given: No CVA/Syncope: POSITIVE: EKG - Consult Consult (If Yes, Name of Consulting MD & Time Called): Yes (, hospitalist, [phone] ) Consulting MD will see pt:: [place] [facility] [place] Counseled: POSITIVE: Patient, RE: Lab Results, RE: Radiology Results, RE: DX, RE: Need for F/U Patient Care Time - Estimated PCT Patient Care Time (In Minutes): 60 Vital Signs - VS Reviewed Vital Signs Reviewed: Yes Discharge Clinical Impression: Fall, Neck pain, Back pain, Vertigo Discharge Disposition: Admit to Inpatient Condition: Stable Date Decision to Admit to Inpatient: 07/29/18 Time Decision to Admit to Inpatient: 10:35
[2018-07-30 04:58] LABS: BASOPHILS # (AUTO) 0.05 10*3/UL; BASOPHILS % (AUTO) 0.6 % (0-1); EOSINOPHILS # (AUTO) 0.19 10*3/UL; EOSINOPHILS % (AUTO) 2.4 % (0-8); Hematocrit [HCT] 42.5 % (42.0-52.0); Hemoglobin [HGB] 14.3 g/dL (14.0-18.0); MEAN CORPUSCULAR HEMOGLOBIN 31.2 PG (27-31); MEAN CORPUSCULAR HGB CONC 33.6 g/dL (33-37); MEAN CORPUSCULAR VOLUME 92.6 FL (80-90); MEAN PLATELET VOLUME 11.3 FL (7.4-12.2); MONOCYTES # (AUTO) 0.69 10*3/UL (0.3-0.8); MONOCYTES % (AUTO) 8.9 % (5-15); NEUTROPHILS # (AUTO) 4.69 10*3/UL; NEUTROPHILS % (AUTO) 60.2 % (50-80); RED BLOOD COUNT 4.59 10^6/uL (4.70-6.10)
[2018-07-30 05:27] LABS: BLOOD UREA NITROGEN 18 mg/dL (7-22); SERUM ALBUMIN 3.8 g/dL (3.5-4.8)
[2018-07-30 05:30] LABS: PLATELET MORPHOLOGY COMMENT NORMAL MORPHOLOGY (NORM); RBC MORPHOLOGY COMMENT NORMAL MORPHOLOGY (NORM); WBC MORPHOLOGY COMMENT NORMAL MORPHOLOGY (NORM)
[2018-07-30] MEDS: Sodium Chloride 0.9% 1,000 ML PRIMARY IV SCH ×2 (07:20→11:57)
[2018-07-30 08:42] LABS: HEMOGLOBIN A1C 10.83 % (4.2-6.0)
--- NOTE | 2018-07-30 09:06 | DI ---
US Carotids Bilateral,07/30/2018 7:00 AM: Clinical History: Vertigo Previous Exam: None at this facility. Findings: Multiple grayscale and color Doppler sonographic images are obtained through the carotid systems bila terally, and demonstrate a small amount of calcified plaque within the bulbs bilaterally. There is some mild endothelial thickening. Peak systolic velocities are as follows: RIGHT- common carotid artery: 71 cm/s. Internal carotid artery: 50 cm/s. Flow within the vertebral arteries is antegrade. Flow within the vertebral artery is antegrade. ICA to CCA ratio measured 0.7. LEFT- Common carotid artery measures 55 cm/s. Internal carotid artery measures 63 cm/s. Flow within the vertebral arteries is antegrade. The ICA to CCA ratio measured 1.2 Impression: No hemodynamically significant stenosis.
--- NOTE | 2018-07-30 09:17 | DI ---
MRI Brain WO Contrast,07/30/2018 7:00 AM: Clinical History: Ataxia Previous Exam: None at this facility. Findings: Multiplanar MR images are obtained through the brain without contrast, and demonstrates diffuse age-r elated volume loss. There is no mass, hemorrhage nor midline shift. The midline structures are unremarkable except for some thinning of the corpus callosum. The posterior fossa is unremarkable. There is no significant abnormal FLAIR or T2 signal. The intraorbital structures and paranasal sinuses are unremarkable. The cerebellopontine angles and the internal auditory canals are unremarkable. The major vascular wili w voids are normal. Impression: Diffuse age-related volume loss otherwise unremarkable.
[2018-07-30] MEDS: GABAPENTIN 400 MG CAPSULE PO SCH ×3 (09:37→21:07)
[2018-07-30] MEDS: DIVALPROEX SODIUM 250 MG TABLET PO SCH ×3 (09:37→21:08)
[2018-07-30] MEDS: ASPIRIN EC 81 MG TABLET PO SCH (09:37)
[2018-07-30] MEDS: Insulin Lispro Flexpen 300 UNIT/3 ML INSULN.PEN SUBCUT SCH (11:29)
--- NOTE | 2018-07-30 11:40 | PDOC(PROG) ---
Date of Service: 07/30/18 Time of Service: 11:45 Interval History: Subjective Patient came into the hospital because of falls this been going on for quite a few months he said. Also had a problem controlling his bladder. And also sometimes his bowels he said. Also being going on for months. He had multiple falls he fell day before and was brought to the hospital. He has problem with his right shoulder with pain and limited movement. He also complained from numbness and burning sometimes in his feet. He thinks the left leg also is weaker compared to the right leg. Also is been going on for months. He's been told that he has borderline diabetes he checks his blood sugar once a day. He is not on any medication for blood sugar. Never been told that he has hypertension. Objective : Data - Labs CBC and BMP: 07/30/18 04:23 07/30/18 04:23 Objective : Exam - General General Appearance: No Acute Distress, Cooperative, Obese - Head Head Exam: Normal Inspection - Eye Eye Exam: Normal Appearance - ENT ENT Exam: Normal Exam - Neck Neck Exam: Normal Inspection - Respiratory Respiratory Exam: Clear to Auscultation - Bilaterally - Cardiovascular Cardiovascular Exam: RRR - GI/Abdominal GI/Abdominal Exam: Normal Bowel Sounds, Non Tender, Non Distended, Soft, No Organomegaly - Rectal Rectal Exam: Deferred - External Exam: Deferred - Extremities Additional Extremities Exam Details: Multiple bruises noted to the legs mostly in the knees. some weakness with hip flexion on the right. Limited shoulder abduction on the right because of pain. 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 No incoordination. Also some weakness with hip flexion extension on the left. - Psychiatric Psychiatric Exam: Normal Affect Assessment and Plan - Patient Problems (1) Vertigo Current Visit: Yes Status: Acute Comment: He is not complaining from vertigo today. Code(s): R42 - Dizziness and giddiness (2) Fall Current Visit: Yes Status: Acute Comment: Probably multifactorial, there is no evidence of for stroke on the MRI. I think he has issues with his back that affecting his walking. So we'll do an MRI of his back. Also has an issue with the shoulder abduction will do an MRI of his shoulder. Continue PT and OT. He has also neuropathy. He is on gabapentin continue. Code(s): W19.XXXA - Unspecified fall, initial encounter (3) Diabetes Current Visit: Yes Status: Acute Comment: He has diabetes A1c is 10. Was put on sliding scale. Well Start him on metformin also. Code(s): E11.9 - Type 2 diabetes mellitus without complications (4) Hypertension Current Visit: Yes Status: Acute Comment: Blood pressure is uncontrolled and with the diabetes will put him on lisinopril. Small dosage. Will Watch his blood pressure. Code(s): I10 - Essential (primary) hypertension
--- NOTE | 2018-07-30 14:38 | PTI REPORT ---
Thank you for the referral of Constantino Hernandez. He was seen on 07/30/18 for an inpatient evaluation secondary to generalized deconditioning. SUBJECTIVE: The patient is a 62-year-old male. The patient reports he lives at home with his where he is the primary caregiver of her. He states he has had a history of falling approximately 50 times in the last two to three months alone due to a cluttered environment as well as losing his balance. He states yesterday he fell while helping his and was unable to get up for approximately 30 minutes, at which time he called the ambulance and he was brought in. He states he has been having problems with dizziness, but believes it is due to medication and is feeling much better today. PAST MEDICAL HISTORY: Past medical history can be found in the patient's medical record. OBJECTIVE FINDINGS: Pain: The patient reports a consistent pain level of 8/10 on the verbal analog scale (0=no pain, 10=worst pain) in his neck and his back, which he has had a chronic history of. Ambulation: The patient uses his all wheeled walker to ambulate throughout his house where he lives in a single wide trailer. It has steps to get in; however, a ramp was built. The patient states he is limited at this time due to his strength and his endurance. Please see occupational therapy evaluation for specifics of upper extremity range of motion and strength. The patient was able to ambulate up to 75 feet before requiring a seated rest break with his all wheeled walker, gait belt, and contact guard assist x2 along with verbal cues for safety awareness and proper use of his walker. The patient had the tendency not to lock his brakes with either standing or sitting. Range of motion: The patient's bilateral lower extremity range of motion is within functional limits. Strength: The patient demonstrates lower extremity strength at best in mid range at 3+/5. Balance: The patient's standing balance at best is fair with the use of his assistive device. ASSESSMENT: Problem List: Decreased safety awareness Impulsivity Decreased strength Decreased safety with ambulation and all transfers Physical Therapy Goals: To be met by discharge from inpatient: Patient will be able to ambulate up to 100 feet consistently with appropriate assistive device safely for household ambulation. Patient will increase strength to at least 4-/5 in bilateral lower extremities and core for independence with all transfers and ambulatory activities. TREATMENT PLAN: Patient will be seen B.I.D during the week and one time per day over the weekend as an inpatient to address the above goals and objectives. INITIAL TREATMENT: Treatment today consisted of the initial evaluation followed by the patient performing standing and seated balance activities as well as ambulating 75 feet x2 with all wheeled walker, gait belt, and contact guard assistance x2. MTDD
--- NOTE | 2018-07-30 15:06 | OTI REPORT ---
Thank you for the referral of Constantino Hernandez. He was seen on 07/30/18 for an occupational therapy inpatient evaluation secondary to weakness and deconditioning. SUBJECTIVE: The patient is a 62-year-old male who is being seen secondary to having multiple falls at home. He has a lot of weakness. He reports that he is having increased difficulty completing his ADLs. The patient is having some difficulty with dressing himself secondary to his weakness. He does have a four wheeled walker that he uses but he has a lot of difficulty getting around his home. The patient does live in a single wide trailer. His is disabled and he is her primary caregiver. The patient reports that a neighbor has been going over to try to help his while he has been in the hospital. The patient states he typically drives and does his own grocery shopping as well as simple meal making for him and his . It has been reported from other staff that [facility] and was discharged home with the patient as the caregiver. The patient reports that he has had increased difficulties at home. He does have a ramp to get in and out of his house. PAST MEDICAL HISTORY: Past medical history can be found in the patient's medical record. OBJECTIVE FINDINGS: Bed mobility: The patient required increased time and it was noted that he had difficulty getting from supine to sit. The patient demonstrated a lot of upper extremity weakness. Range of motion: The patient's right upper extremity was only able to move about 20 degrees. His left upper extremity moved to 90 degrees. Strength: The patient reports that he feels his left side feels weaker than his right side. Shoulder strength on the right was 1/5. Shoulder strength on the left was 2+/5. Elbow flexion/extension are within normal limits; however, he demonstrated decreased coordination and ability to complete this in a good coordinated manor. Elbow flexion was 3+/5 on the right and 3/5 on the left. Shoulder extension was 3+/5 on the right and 3/5 on the left. Wrist flexion/extension was fair at 3+/5. He had difficulty opposing each finger to the 4th and 5th digit. He was able to oppose to the 2nd and 3rd digits fine. Activities of daily living: The patient has difficulty bringing his legs up to don and doff socks. The patient has difficulty dressing upper extremities unless it is a button up shirt. Transfers: Functional transfers appeared to be unsafe. The patient is very impulsive. He needs min to mod assist to keep his balance, especially if he is turning. The patient does not use his walker safely and does not put the brakes on when sitting on the walker. When transferring back to bed, the patient left his walker at the bottom of the bed and tried to walk without any assistance to the bed and lost his balance. Cognition: The patient was alert and oriented x3. We will further assess his processing abilities at a later date. ASSESSMENT: The patient is demonstrating pretty severe weakness of the upper extremities. He demonstrates a lot of impulsivity and cognitively does not think about his safety when completing functional transfers. He requires mod assist for lower extremity dressing and min assist for upper extremity dressing. The patient has very limited range of motion and more than likely has a rotator cuff tear on the right shoulder. He demonstrates a lot of weakness throughout both upper extremities in the shoulder, elbow, and wrist region. The patient would benefit from further cognitive testing to assess his abilities for safety at home. It is very concerning that he is taking care of his as it appears that he probably has a lot of difficulty just taking care of himself. His report of falling 50+ times or more at home is a big concern. We may need to look at a different discharge placement for this patient as well as his . It sounds like his would not be able to function on her own if he is gone for long periods of time. It is recommended that the patient stay for an inpatient and will more than likely need to be a swingbed patient to work on his safety awareness, functional transfers, functional tasks, and strength. Short-Term Goals: To be met by discharge from inpatient: Patient will be able to dress upper and lower extremities with contact guard assist. Patient will be able to complete a functional toilet transfer with toilet hygiene independently. Patient will participate in the MoCA and the CPT to address his cognitive processing abilities. Patient will increase upper extremity strength to 4+/5 on the left and 3+/5 on the right. Patient will demonstrate safety awareness and be safe with every transfer to the toilet/bed/chair. Long-Term Goals: To be met following discharge from inpatient: We will find an appropriate discharge placement for the patient that he will be safe and independent with his ADLs and functional tasks. This may include 24- hour care. Patient's goal is to return home, demonstrating safety and independence with all functional transfers and ADLs. TREATMENT PLAN: Patient will be seen B.I.D during the week and one time per day over the weekend as an inpatient to address the above goals and objectives. INITIAL TREATMENT: Treatment today consisted of the initial evaluation followed by the patient attempting to dress lower extremities including socks and shorts. The patient completed a functional transfer to the chair with mod to max assist for balance. The patient demonstrated very poor impulse control. He performed upper extremity active range of motion activities. [facility]
--- NOTE | 2018-07-30 16:31 | OT.PROG ---
Progress Note Progress Note: S: pt reported that he has back pain and became really weak. He tole me he gain a lot of weight when he stopped using meth. Pt did report that his is home sick and that someone is checking on her. O: pt was seen in his room and transferred down using 4wheel walker. He completed 2 min on Ue bike to increase his activity tolerance. He transferred into restroom and prepared for pool. He then donned LE swim wear with MOd Ind. He doffed socks INd and walked to chair where he needed CGA for safety. He returned to restroom and completed toileting with MOd Ind as it took him longer. He transferred into pool with CGA for safety. Once he finished up with pool activity he returned to restroom. He completed donning of UE's with mod A and LE pants with SBA, and socks were completed with max A. He then returned to his room using walker. A: pt is very impulsive throughout his transfers and increases his fall risk as they are not done safely. He does have loss of balance and decreased proprioception possibly due to diabetic neuropathy, or visual deficit. Pt's needed vc's to tie his LE garments up several times and had difficulty even sitting and completing task. Maintain CGA with gait belt at all times as he is high fall risk. P: continue per POC.
--- NOTE | 2018-07-30 16:51 | PT.PROG ---
Progress Note Progress Note: S. Patient stated that he would like to go swimming. O. Patient ambulated 175 feet to the pool where he performed aquatic exercises in the form of; ambulation, strengthening, balance, and traction x35 minutes. Patient was left with OT for further therapy. A. Patient tolerated aquatic therapy well this afternoon, he was able to perform all exercises with no complaint of pain or problems. Patient continues to be very impulsive and therefore is a high fall risk. Patient would continue to benefit from skilled therapy to increase strength, endurance and safety at this time. P. Continue POC.
--- NOTE | 2018-07-30 17:18 | DI ---
MRI Lumbar Spine WO Contrast,07/30/2018 11:32 AM: Clinical History: Back pain status post fall Previous Exam: 11/14/16 Findings: Multiplanar MR images are obtained through the lumbar spine without contrast. Bony alignment is anatomic. No fractures are seen. Marrow signal is preserved. There has been some im provement in the endplate edema seen at L4/5 on the prior exam. The spinal cord descends normally with normal course, caliber and a normal conus at the L1 level. There are postsurgical changes consistent with laminectomies at the L4 level. 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 Visualized portions of the kidneys are unremarkable. Individual intervertebral disc spaces: L1/2: There is some facet and ligamentum flavum hypertrophy and a small broad-based disc bulge combin ing with the congenital stenosis to cause mild bilateral neural foraminal narrowing and mild central canal stenosis. L2/3: There is disc desiccation, a broad-based disc bulge and some facet and ligamentum flavum hypert rophy contributing to severe central canal stenosis with moderate bilateral neuroforaminal narrowing. L3/4: There is disc desiccation, annular fissuring and a broad-based disc bulge combining with facet and ligamentum flavum hypertrophy to cause severe central canal stenosis and severe bilateral neural foraminal narrowing. L4/5: There is disc desiccation, annular fissuring and a broad-based disc bulge with facet and ligame ntum flavum hypertrophy. There is bilateral laminectomies at this level but no effective decompressio n. There is severe bilateral neural foraminal narrowing. L5/S1: There is disc desiccation, facet and ligamentum flavum hypertrophy, annular fissuring and a br oad-based disc bulge contributing to moderate central canal stenosis and severe bilateral neural fora hansel narrowing. Impression: L1/2: There is some facet and ligamentum flavum hypertrophy and a small broad-based disc bulge combin ing with the congenital stenosis to cause mild bilateral neural foraminal narrowing and mild central canal stenosis. L2/3: There is disc desiccation, a broad-based disc bulge and some facet and ligamentum flavum hypert rophy contributing to severe central canal stenosis with moderate bilateral neuroforaminal narrowing. L3/4: There is disc desiccation, annular fissuring and a broad-based disc bulge combining with facet and ligamentum flavum hypertrophy to cause severe central canal stenosis and severe bilateral neural foraminal narrowing. L4/5: There is disc desiccation, annular fissuring and a broad-based disc bulge with facet and ligame ntum flavum hypertrophy. There is bilateral laminectomies at this level but no effective decompressio n. There is severe bilateral neural foraminal narrowing. L5/S1: There is disc desiccation, facet and ligamentum flavum hypertrophy, annular fissuring and a br oad-based disc bulge contributing to moderate central canal stenosis and severe bilateral neural fora hansel narrowing.
--- NOTE | 2018-07-30 17:31 | DI ---
MRI Upper Extremity Joint WO,07/30/2018 11:32 AM: Clinical History: Right shoulder pain. Previous Exam: None at this facility. Findings: Multiplanar MR images are obtained through the right shoulder without contrast, and demonstrate anato tiffanie alignment without fractures. There is loss of articular cartilage thickness with some subchondral cyst formation. The acromioclavicular joint is unremarkable. There is a full thickness tear of the supraspinatus tendon. There is also a full thickness tear of th e infraspinatus tendon. There are a few remaining fibers. There is fatty atrophy of supraspinatus and infraspinatus tendons. The teres minor tendon is intact. There is tendinosis of the distal subscapularis tendon without full-thickness tears. The long head of the biceps tendon demonstrates increased signal as it passes through the rotator cuf f interval. There is some degenerative tearing of the glenoid labrum. Impression: 1. Full-thickness tears of the supraspinatus and infraspinatus tendons with retraction and fatty atro phy of the muscle bodies. 2. Tendinosis of the subscapularis tendon. 3. Increased signal of the long head of the biceps tendon as it passes through the rotator cuff inter eliel. 4. Degenerative tearing of the glenoid labrum. 5. Chondromalacia of the glenohumeral joint.
[2018-07-30] MEDS: metFORMIN 500 MG TABLET PO SCH (18:01)
[2018-07-30] MEDS: VENLAFAXINE XR 75 MG CAP PO SCH (21:08)
[2018-07-30] MEDS: LISINOPRIL 5 MG TABLET PO SCH (21:08)
[2018-07-31] MEDS: Insulin Lispro Flexpen 300 UNIT/3 ML INSULN.PEN SUBCUT SCH ×2 (08:10→11:56)
[2018-07-31] MEDS: ASPIRIN EC 81 MG TABLET PO SCH (09:04)
[2018-07-31] MEDS: VENLAFAXINE XR 75 MG CAP PO SCH ×2 (09:04→21:47)
[2018-07-31] MEDS: GABAPENTIN 400 MG CAPSULE PO SCH ×3 (09:04→21:47)
[2018-07-31] MEDS: LISINOPRIL 5 MG TABLET PO SCH ×2 (09:04→21:47)
[2018-07-31] MEDS: DIVALPROEX SODIUM 250 MG TABLET PO SCH ×3 (09:05→21:47)
[2018-07-31] MEDS: metFORMIN 500 MG TABLET PO SCH ×2 (09:05→17:15)
--- NOTE | 2018-07-31 09:22 | PDOC(PROG) ---
Date of Service: 07/31/18 Time of Service: 09:30 Interval History: Subjective He is not complaining from dizziness today. His main complaint is headache. No other symptoms. Objective : Data - Labs CBC and BMP: 07/30/18 04:23 07/30/18 04:23 Objective : Exam - General General Appearance: No Acute Distress, Cooperative, Obese - Head Head Exam: Normal Inspection - Eye Eye Exam: Normal Appearance - ENT ENT Exam: Normal Exam - Neck Neck Exam: Normal Inspection - Respiratory Respiratory Exam: Clear to Auscultation - Bilaterally - Cardiovascular Cardiovascular Exam: RRR - GI/Abdominal GI/Abdominal Exam: Normal Bowel Sounds, Non Tender, Non Distended, Soft, No Organomegaly - Rectal Rectal Exam: Deferred - External Exam: Deferred Exam: Deferred - Extremities Additional Extremities Exam Details: Complain from pain with right shoulder abduction. Did watch his walking seems to be better than yesterday. - Back Back Exam: Normal Inspection - Neurological Neurological Exam: Alert, Oriented x 3, CN II-XII Intact, Speech Intact / Clear - Psychiatric Psychiatric Exam: Normal Affect - Integumentary Integumentary Exam: Normal Color Assessment and Plan - Patient Problems (1) Vertigo Current Visit: Yes Status: Acute Comment: Seem to be resolved Code(s): R42 - Dizziness and giddiness (2) Fall Current Visit: Yes Status: Acute Comment: Multifactorial. MRI of his back showed degenerative disease with canal stenosis. I did speak with Dr. Roman he will try to see him tomorrow. In addition he has a full-thickness tear of the supra and infraspinatus muscle. We'll try to speak with the Dr. Mullen and see his opinion about it. Code(s): W19.XXXA - Unspecified fall, initial encounter (3) Diabetes Current Visit: Yes Status: Acute Comment: We started him on metformin blood sugars seem to be better now. Code(s): E11.9 - Type 2 diabetes mellitus without complications (4) Hypertension Current Visit: Yes Status: Acute Comment: We started him on lisinopril continue blood pressure seems to be better now. Code(s): I10 - Essential (primary) hypertension
--- NOTE | 2018-07-31 12:58 | PT.PROG ---
Progress Note Progress Note: S. Patient stated that he enjoyed the pool and would like to swim again. O. Patient ambulated 175 feet to the pool where he performed aquatic exercise in the form of; ambulation, strengthening and balance exercises as well as traction for a total of 30 minutes. Patient was left with OT for further therapy. A. Patient tolerated aquatic therapy well this morning, he continues to be very impulsive and had a near fall while returning to his room, He continues to require frequent verbal cues to use his walker safely. He would continue to benefit from skilled therapy to increase strength, safety at this time. P. Continue POC.
--- NOTE | 2018-07-31 16:16 | OT.PROG ---
Progress Note Progress Note: S: when entered room pt reported that he was resting. He also stated that he had diarrhea and his stomach hurt and did not want to participate in therapy. After asking a couple of times pt officially refused therapy.
[2018-08-01 05:49] LABS: BLOOD UREA NITROGEN 21 mg/dL (7-22); BUN/CREATININE RATIO 26.25 (6-20)
[2018-08-01] MEDS: Insulin Lispro Flexpen 300 UNIT/3 ML INSULN.PEN SUBCUT SCH ×2 (07:30→11:41)
[2018-08-01] MEDS: metFORMIN 500 MG TABLET PO SCH (07:53)
--- NOTE | 2018-08-01 08:26 | PDOC(PROG) ---
Date of Service: 08/01/18 Time of Service: 08:30 Interval History: Subjective Patient feels better denying complaint. He feels he is getting stronger. Objective : Data - Labs CBC and BMP: 07/30/18 04:23 08/01/18 04:55 Objective : Exam - General General Appearance: No Acute Distress, Cooperative - Head Head Exam: Normal Inspection - Eye Eye Exam: Normal Appearance - ENT ENT Exam: Normal Exam - Neck Neck Exam: Normal Inspection - Respiratory Respiratory Exam: Clear to Auscultation - Bilaterally - Cardiovascular Cardiovascular Exam: RRR - GI/Abdominal GI/Abdominal Exam: Normal Bowel Sounds, Non Tender, Non Distended, Soft, No Organomegaly - Rectal Rectal Exam: Deferred - External Exam: Deferred - Extremities Extremities Exam: Normal Inspection - Back Back Exam: Normal Inspection - Neurological Neurological Exam: Alert, Oriented x 3, CN II-XII Intact, No Facial Droop, Speech Intact / Clear Additional Neurological Exam Details: There is some still weakness and pain on abduction of the right shoulder. - Psychiatric Psychiatric Exam: Normal Affect Assessment and Plan - Patient Problems (1) Vertigo Current Visit: Yes Status: Acute Comment: Seem to be resolved Code(s): R42 - Dizziness and giddiness (2) Fall Current Visit: Yes Status: Acute Comment: Multifactorial. Continue PT and OT. I'll discuss it with the buyer planner whether he qualifies for swing bed. Code(s): W19.XXXA - Unspecified fall, initial encounter (3) Diabetes Current Visit: Yes Status: Acute Comment: He is on metformin however he had some diarrhea this morning so I think will cut back on the dosage to once a day and will watch his blood sugar and his symptoms. Code(s): E11.9 - Type 2 diabetes mellitus without complications (4) Hypertension Current Visit: Yes Status: Acute Comment: Continue lisinopril Code(s): I10 - Essential (primary) hypertension (5) Right rotator cuff tear Current Visit: Yes Status: Acute Comment: Discussed with the Dr. Mullen he suggested shoulder x-rays. And follow-up with him as an outpatient Code(s): M75.101 - Unspecified rotator cuff tear or rupture of right shoulder, not specified as traumatic
[2018-08-01] MEDS: GABAPENTIN 400 MG CAPSULE PO SCH ×3 (09:49→20:55)
[2018-08-01] MEDS: LISINOPRIL 5 MG TABLET PO SCH ×2 (09:49→20:55)
[2018-08-01] MEDS: DIVALPROEX SODIUM 250 MG TABLET PO SCH ×3 (09:49→20:55)
[2018-08-01] MEDS: ASPIRIN EC 81 MG TABLET PO SCH (09:49)
[2018-08-01] MEDS: VENLAFAXINE XR 75 MG CAP PO SCH ×2 (09:49→20:55)
--- NOTE | 2018-08-01 11:51 | PT.PROG ---
Progress Note Progress Note: S. Patient stated that he is still not feeling great however agreed to go to the therapy gym this morning. O. Patient ambulated 175 feet to the therapy gym where he used the nu-step x 8 minutes then performed seated exercises in the form of; long arc quads, marches, heel toe raises, ball squeezes, clam shells, and resisted knee flexion all x 10 bilaterally with 2# weights and red thera bands. Patient was left with OT for further therapy. A. Patient tolerated therapy fair, he continues to struggle with balance and weakness, he would continue to benefit from skilled therapy to increase strength, endurance and safety at this time. P. Continue POC
--- NOTE | 2018-08-01 14:42 | OT AM DAY ---
Diagnosis : Deconditioning AM - Occupational Therapy S: The patient asked if he would be able to go home over the weekend. The patient was willing to participate in the MoCA. O: The patient had just finished breakfast upon the therapist's arrival. We tested the patient with the Mackey Cognitive Assessment. Visuospatial/Executive: 09/30 -- He had difficulty following the 1A, 2B sequence. When asked to make a clock, the patient was looking around his room for something to make the [place] with. He ended up using his urinal to make the [place], which was probably not a good way to problem solve that activity. Namin/3 Attention: 11/01 Language: 07/31 Abstraction: 0 Delayed recall: 08/02 Orientation: 01/01 We then had the patient practice lower extremity dressing. The patient was able to don shoes independently. He was asked to don swim trunks and needed min assist to get his trunks over left lower extremity. He required assistance to pull shorts up to waist and max assist to tie drawstrings as his fingers were not able to coordinate this activity. The patient needed to use the restroom. He needed min assist for toilet hygiene after a bowel movement. The patient completed pool therapy where he worked on upper extremity range of motion as well as triceps extension and biceps flexion with paddles. Upon exiting the pool, the patient was able to don shoes independently after set up. He would have fallen a couple of times while standing up to pull up his shorts. He demonstrated impulsivity with his actions and movements. The patient then went back to his room. A: The patient did run into doorways twice today; he may have some visual deficits. The patient is demonstrating cognitive, visual, and physical deficits that are definitely affecting his ability to perform activities safely at home. There were a couple of times today that he could have fallen secondary to impulsivity and not being able to complete good righting reactions to almost falling backwards and over. At this point in time the patient is still not safe to return home. It may be beneficial to look into him and his getting 24- hour care. We will continue with a CPT this afternoon to address his ability to take care of his own medications and to further assess his processing skills. P: Continue seeing patient BID during the week and one time per day over the weekend for upper extremity strengthening, ADLs, and overall functional mobility. MANISHA
--- NOTE | 2018-08-01 16:03 | PT.PROG ---
Progress Note Progress Note: S. Patient agreed to go to the the therapy gym. O. Patient ambulated 175 feet to the therapy gym where she used the nu-step x 9 minutes, long arc quads, marches, short arc quads, hip abduction/adduction, sit to stands all x 10 bilaterally with 2# and red thera bands. Patient then performed minute drills 3x1 minute. Patient was left with OT for further therapy. A. Patient tolerated therapy fair, he continues to be very impulsive and unaware of his surroundings, He continues to have balance and strength deficits, he would continue to benefit from skilled therapy to increase strength, endurance and mobility. P. Continue POC.
--- NOTE | 2018-08-01 16:18 | OT.PROG ---
Progress Note Progress Note: S: pt began with refusing therapy this morning but after talking with nursing decided to participate. O: pt was seen in his room completed bed mobility with mod Ind as it took him longer to complete. He completed transfer downstairs maintaining CGA at all times as he remains high fall risk. He completed 8 min on UE bike to increase activity tolerance. He then participated in CPT test; scores below. Medbox: 3.5/6 Shop: 11/01 Wash: 11/30 [place]: 10/31 Phone: 11/01 total: 4.1/5.6 Pt was returned to his room after test. A: pt had difficulty with med box as he could not follow rules and placed pills in randomly. Shopping he had difficulty coming up with correct change but with cues he did complete. Score results demonstrate a need for 24 hr care with supervision to max A depending on novelty of situation and physical ability. He may benefit from environmental adaptation such as enhance lighting, assistive technology, provide assistance with exercise, adn rolling walker for ambulation. P: continue per POC, and may benefit from [place] facility.
--- NOTE | 2018-08-01 16:28 | OT.PROG ---
Progress Note Progress Note: S: pt reported no more diarrhea, and that he was able to eat a tuna sandwich for lunch. O: pt Completed transfer downstairs with CGA at all times and needed several vc's to slow down as his fall risk increases as he become impulsive. Pt completed UE exercise with RTb in all planes x25 to increase strength. Pt rec eived heat to LE back for 10 min and then transferred upstairs to Radiology maintaining CGA at all times with gait belt. Radiology returned him to his room. A: pt remains a high fall risk and he is extremely impulsive and does not follow cues to slow down to prevent falls. He may benefit from 24 hr care to assist with overall health and prevent falls and hygiene. P: continue per pOC.
[2018-08-02] MEDS: Insulin Lispro Flexpen 300 UNIT/3 ML INSULN.PEN SUBCUT SCH ×2 (08:32→12:04)
--- NOTE | 2018-08-02 09:22 | PDOC(PROG) ---
Date of Service: 08/02/18 Time of Service: 09:25 Interval History: Subjective Patient is denying complaints. No diarrhea today. He thinks is getting stronger. No dizziness. Objective : Data - Labs CBC and BMP: 07/30/18 04:23 08/01/18 04:55 Objective : Exam - General General Appearance: No Acute Distress, Cooperative - Head Head Exam: Normal Inspection - Eye Eye Exam: Normal Appearance - ENT ENT Exam: Normal Exam - Neck Neck Exam: Normal Inspection - Respiratory Respiratory Exam: Clear to Auscultation - Bilaterally - Cardiovascular Cardiovascular Exam: RRR - GI/Abdominal GI/Abdominal Exam: Normal Bowel Sounds, Non Tender, Non Distended, Soft, No Organomegaly - Rectal Rectal Exam: Deferred - External Exam: Deferred - Extremities Additional Extremities Exam Details: Subjective pain with right shoulder abduction. I think his strength is getting better and stronger. Assessment and Plan - Patient Problems (1) Vertigo Current Visit: Yes Status: Acute Comment: Seem to be resolved Code(s): R42 - Dizziness and giddiness (2) Fall Current Visit: Yes Status: Acute Comment: continue PT and OT. I think he probably would benefit from a trial of swing bed. Maybe swinging him tomorrow. Code(s): W19.XXXA - Unspecified fall, initial encounter (3) Diabetes Current Visit: Yes Status: Acute Comment: Continue metformin Code(s): E11.9 - Type 2 diabetes mellitus without complications (4) Hypertension Current Visit: Yes Status: Acute Comment: Continue lisinopril though at a lower dosage. Code(s): I10 - Essential (primary) hypertension (5) Right rotator cuff tear Current Visit: Yes Status: Acute Comment: He'll need outpatient appointment with Dr. Mullen. Code(s): M75.101 - Unspecified rotator cuff tear or rupture of right shoulder, not specified as traumatic
[2018-08-02] MEDS: GABAPENTIN 400 MG CAPSULE PO SCH ×3 (09:42→21:29)
[2018-08-02] MEDS: VENLAFAXINE XR 75 MG CAP PO SCH ×2 (09:42→21:29)
[2018-08-02] MEDS: DIVALPROEX SODIUM 250 MG TABLET PO SCH ×3 (09:43→21:29)
[2018-08-02] MEDS: ASPIRIN EC 81 MG TABLET PO SCH (09:43)
[2018-08-02] MEDS: metFORMIN 500 MG TABLET PO SCH (09:43)
[2018-08-03 06:43] VITALS: BP 126/92; RESP 17; TEMP 97.5; O2SAT 93
[2018-08-03] MEDS: Insulin Lispro Flexpen 300 UNIT/3 ML INSULN.PEN SUBCUT SCH (07:20)
[2018-08-03] MEDS: metFORMIN 500 MG TABLET PO SCH (08:45)
[2018-08-03] MEDS: GABAPENTIN 400 MG CAPSULE PO SCH (08:45)
[2018-08-03] MEDS: DIVALPROEX SODIUM 250 MG TABLET PO SCH (08:45)
[2018-08-03] MEDS: VENLAFAXINE XR 75 MG CAP PO SCH (08:45)
[2018-08-03] MEDS: ASPIRIN EC 81 MG TABLET PO SCH (08:46)
[2018-08-03] MEDS ORDERED: LISINOPRIL 5 MG TABLET PO SCH (09:00)
--- NOTE | 2018-08-03 10:00 | DCSUMMARY ---
Hospitalization Summary Admit Date: 07/29/2018 Discharge Date: 08/03/18 Hospital Course: Discharge diagnoses 1. Multiple falls probably multifactorial 2. Right rotator cuff tear 3. Degenerative back disease with severe bilateral neural foramina narrowing at L5-S1 and L3-L4 severe central canal stenosis at L1-L2. 4. History of seizure disorder 5. Diabetes 6. Hypertension 7. Subclinical hypothyroidism 8. History of migraine headaches Hospital course This is a 62 years old male with medical history significant for history of seizure disorder, obesity who came into the hospital for multiple complaints one of which was dizziness has been going on for several months. He also had sev eral falls recently. Had also chronic back pain. He was admitted to the hospital by Dr. Porras please see his note. Patient had MRI of his head and CT of the head there was no evidence of stroke. I saw him later on during his hospital stay he had multiple complaints. We did MRI of his back MRI of his right shoulder as he had the pain in his right shoulder with movement and shoulder abduction. He had weakness in the legs mostly was hip flexion on the left. Regarding his mobility he was impulsive and tendency to fall. MRI did show evidence of canal stenosis severe. Also had bilateral tabitha inal narrowing. I did ask Dr. Gilliland to see him. Based on my discussion with the PA he doesn't think he needs surgery now. Shoulder MRI did show right rotator cuff tear. Need follow-up with Dr. Mullen as an outpatient. His strength improved with physical therapy and we thought that he probably need longer stay here on swing bed before he be able to go back home. So patient status will be changed swing bed to continue physical therapy. His blood sugar was elevated and his A1c was 10. We put him on metformin for that. Blood pressure was also elevated with him on lisinopril. He had a TSH done as an outpatient and was elevated but T4 was fine this need follow-up later on as an outpatient as he falls into the category of subclinical hypothyroidism. I think needs another repeat befor a decision is made to put him on medication. Discharge instruction Diet regular Activity as started Medications Active Medications Acetaminophen/Aspirin/Caffeine (Excedrin Migrane Tab) 1 each PO Q6H PRN PRN Reason: HEADACHE Last Admin: 08/02/18 21:28 Dose: 1 each Documented by: Aspirin (Aspirin Ec) 81 mg PO DAILY DAJA Last Admin: 08/03/18 08:46 Dose: 81 mg Documented by: Divalproex Sodium (Depakote) 500 mg PO TID [facility] Last Admin: 08/03/18 08:45 Dose: 500 mg Documented by: Gabapentin (Neurontin Cap) 1,200 mg PO TID [facility] Last Admin: 08/03/18 08:45 Dose: 1,200 mg Documented by: Sodium Chloride (Normal Saline 0.9%) 25 mls @ 200 mls/hr IV .Post Infusion PRN PRN Reason: Flush Insulin Human Lispro (Humalog Flexpen Inj) 0 unit SUBCUT AC BK SARAH [facility]; Protocol Last Admin: 08/03/18 07:20 Dose: Not Given Documented by: Lidocaine HCl (Lidocaine Buffered Inj) 0.5 ml SUBD ONCE PRN PRN Reason: IV Starts Lisinopril (Prinivil) 5 mg PO DAILY [facility] Last Admin: 08/03/18 08:46 Dose: 5 mg Documented by: Metformin HCl (Glucophage Tab) 500 mg PO DAILY [facility] Last Admin: 08/03/18 08:45 Dose: 500 mg Documented by: Venlafaxine HCl (Effexor Xr) 150 mg PO BID [facility] Last Admin: 08/03/18 08:45 Dose: 150 mg Documented by: Follow-up patient status will be switched to swing bed status. Exam - Vitals Vital Signs: Vital Signs Temperature 97.5 F Temperature Source Temporal Artery Scan Pulse Rate [Pulse Oximeter] 83 Pulse Rate 61 Respiratory Rate 17 Blood Pressure [Sitting] 150/87 Blood Pressure [Lying] 150/81 Blood Pressure [Right Arm] 138/88 Blood Pressure [Left Arm] 126/92 Blood Pressure 126/95 Pulse Ox 93 Oxygen Flow Rate 2 Oxygen Delivery Method Room Air Height 5 ft 10 in Weight 239 lb 6.4 oz - General General Appearance: No Acute Distress, Cooperative, Obese - Head Head Exam: Normal Inspection - Eye Eye Exam: POSITIVE: Normal Appearance - Neck Neck Exam: Normal Inspection - Respiratory Respiratory Exam: POSITIVE: Clear to Auscultation - Bilaterally - Cardiovascular Cardiovascular Exam: POSITIVE: RRR - GI/Abdominal GI/Abdominal Exam: POSITIVE: Normal Bowel Sounds, Non Tender, Non Distended, Soft, No Organomegaly - Rectal Rectal Exam: POSITIVE: Deferred - External Exam: POSITIVE: Deferred - Extremities Extremities Exam: POSITIVE: Normal Inspection - Back Back Exam: POSITIVE: Normal Inspection - Neurological Neurological Exam: POSITIVE: Alert, CN II-XII Intact, No Facial Droop, Speech Intact / Clear Additional Neurological Exam Details: There is still some weakness now more on the right side of the hip flexion. Pain in right shoulder abduction. - Psychiatric Psychiatric Exam: POSITIVE: Normal Affect Patient Problems - Patient Problem List (1) Vertigo Status: Acute Code(s): R42 - Dizziness and giddiness Category: Medical (2) Fall Status: Acute Code(s): W19.XXXA - Unspecified fall, initial encounter Category: Medical (3) Diabetes Status: Acute Code(s): E11.9 - Type 2 diabetes mellitus without complications Category: Medical (4) Hypertension Status: Acute Code(s): I10 - Essential (primary) hypertension Category: Medical (5) Right rotator cuff tear Status: Acute Code(s): M75.101 - Unspecified rotator cuff tear or rupture of right shoulder, not specified as traumatic Category: Medical
--- NOTE | 2018-08-03 21:22 | DI ---
XR SHOULDER MIN 2VW,08/01/2018 8:07 AM: Clinical History: Right shoulder pain Previous Exam: None at this facility. Findings: 5 views of the right shoulder are obtained, and demonstrate anatomic alignment without fractures. The adjacent right lung and chest wall are unremarkable. There are mild degenerative changes of the righ t glenohumeral joint and the right acromioclavicular joint. There is no infiltrate nor effusion. Ther e is no evidence of pneumothorax. Impression: Mild degenerative changes of the right glenohumeral joint. Mild degenerative changes of the right acromioclavicular joint.
--- NOTE | 2018-08-04 09:51 | PT AM DAY ---
Diagnosis : Deconditioning AM - Physical Therapy S: The patient states he is doing well this morning. He reports that his right arm is sore due to a previous shoulder injury, but otherwise he is willing to participate in therapy. O: Treatment consisted of the patient transferring from bed to stand with contact guard assist x1 for safety. The patient was able to dress his lower extremity including putting his pants and shoes on with stand by assist x1 for safety. The patient then utilized a four wheeled walker in order to ambulate from his room to therapy x150 feet. The patient did require verbal cueing at times in order to lock his brakes when he wanted to sit back on the seat on his walker while he rode on the elevator. The patient does demonstrate some impulsive behavior at times with the locks and also ambulating at a quick speed and he did require contact guard assist for safety reasons. Once we were down in therapy the patient performed the UBE x6 minutes, NuStep x10 minutes, and sit to stands x10, focusing on sitting down slowly and avoiding plopping. The patient then performed straight leg raises, short arc quads, and hip abduction/adduction with three pounds on the left and zero pounds on the right as his knee was popping and he was having some difficulties with knee pain. The patient then performed 10 long arc quads bilaterally. The patient then ambulated back upstairs with his walker and contact guard assist x1 for safety. The patient then transferred into his chair where he was left with call light within reach and the chair alarm set. A: The patient tolerated exercises well and participated well with therapy; although he does require maximal verbal cueing for safety awareness as he has a hard time remembering to lock the brakes and does become impulsive with his transfers at times. His overall balance is poor. P: Continue seeing patient BID during the week and one time per day over the weekend for transfers, ambulation, and range of motion/strengthening exercises. MANISHA
--- NOTE | 2018-08-05 14:17 | OT AM DAY ---
Diagnosis : Deconditioning AM - Occupational Therapy S: The patient states he is okay to go down for therapy. He did report that he had some diarrhea. O: The patient was seen in his room. He donned brief and completed lower extremity dressing with min assist. He then completed functional transfer all the way downstairs with cues to take it slow to prevent any falls. Once he arrived in therapy, he performed therapeutic exercises including straight leg raises, short arc quads, hip abduction/adduction, ball squeezes, and sit to stands with a four pound ball x10. He then completed upper extremity exercises with red theraband bilaterally in all planes and ranges x15. The patient then completed dynamic sitting and standing balance activity to increase his balance with balloon toss back and forth x2 minutes sitting and 2 minutes standing. The patient required min assist while standing to prevent any falls. The patient then completed UBE x4 minutes to increase his activity tolerance. The patient returned to his room. He was left in chair with call light within reach. Nursing was notified. A: The patient continues to be a high fall risk; we maintain contact guard assist at all times through all transfers. He may continue to benefit from therapy to work on his independence, ADLs, balance, and overall strength. P: Continue seeing patient BID during the week and one time per day over the weekend for upper extremity strengthening, ADLs, and overall functional mobility. MTDD
== END 2018-08-03 10:38 | disposition swing bed (61) | DRG 149 ==
LOC: ER 08:28 → MED/SURG 08:28
PROVIDERS: ADMIT Internal Medicine; ATTEND Internal Medicine

== ENCOUNTER 2018-08-23 21:15 | Inpatient (IN) ==
[2018-08-23] MEDS ORDERED: Sodium Chloride 0.9% 1,000 ML PRIMARY IV ONE (21:41)
[2018-08-23 22:22] LABS: BASOPHILS # (AUTO) 0.06 10*3/UL; BASOPHILS % (AUTO) 0.6 % (0-1); EOSINOPHILS # (AUTO) 0.21 10*3/UL; Hematocrit [HCT] 39.5 % (42.0-52.0); Hemoglobin [HGB] 13.7 g/dL (14.0-18.0); LYMPHOCYTES # (AUTO) 2.95 10*3/uL; MEAN CORPUSCULAR HEMOGLOBIN 31.6 PG (27-31); MEAN CORPUSCULAR HGB CONC 34.7 g/dL (33-37); MEAN CORPUSCULAR VOLUME 91.2 FL (80-90); MEAN PLATELET VOLUME 10.8 FL (7.4-12.2); MONOCYTES # (AUTO) 0.82 10*3/UL (0.3-0.8); MONOCYTES % (AUTO) 7.9 % (5-15); NEUTROPHILS # (AUTO) 6.26 10*3/UL; NEUTROPHILS % (AUTO) 60.4 % (50-80); RED BLOOD COUNT 4.33 10^6/uL (4.70-6.10)
[2018-08-23 22:23] LABS: PLATELET MORPHOLOGY COMMENT NORMAL MORPHOLOGY (NORM); RBC MORPHOLOGY COMMENT NORMAL MORPHOLOGY (NORM); WBC MORPHOLOGY COMMENT NORMAL MORPHOLOGY (NORM)
[2018-08-23 22:34] LABS: BLOOD UREA NITROGEN 23 mg/dL (7-22); SERUM ALBUMIN 4.2 g/dL (3.5-4.8)
--- NOTE | 2018-08-23 23:04 | DI ---
EXAM: XR Right Shoulder Complete, 2 or More Views CLINICAL HISTORY: Pain TECHNIQUE: Two or more views of the right shoulder. COMPARISON: No relevant prior studies available. FINDINGS: Bones/joints: Unremarkable. No acute fracture. No dislocation. Soft tissues: Unremarkable. IMPRESSION: Normal right shoulder x-rays.
[2018-08-23] MEDS ORDERED: Glucagon Inj Vial 1 MG/ML VIAL IM PRN (23:34)
[2018-08-23] MEDS ORDERED: ACETAMINOPHEN 325 MG TABLET PO PRN (23:34)
[2018-08-23] MEDS ORDERED: DEXTROSE 50%-WATER SYRINGE 50 ML SYRINGE IVP PRN (23:34)
[2018-08-23] MEDS ORDERED: DEXTROSE 31 GM GEL PO PRN (23:34)
[2018-08-23] MEDS ORDERED: LIDOCAINE W/ SODIUM BICARB 0.5 ML SYR SUBD PRN (23:34)
[2018-08-23] MEDS ORDERED: ONDANSETRON 4 MG/2 ML VIAL IVP PRN (23:34)
[2018-08-23] MEDS ORDERED: DOCUSATE 100 MG CAPSULE PO PRN (23:34)
[2018-08-23] MEDS ORDERED: CALCIUM CARBONATE 500 MG (TUMS) CHEWABLE TABLET PO PRN (23:34)
[2018-08-23] MEDS ORDERED: Insulin Sliding Scale Protocol SUBCUT PRN (23:34)
--- NOTE | 2018-08-24 00:29 | PDOC ---
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 He was actually in the emergency room last night and complained of some wrist pain in his wrist x-ray was negative. Today complained of shoulder pain in his shoulder x-ray was negative. He has a known right rotator cuff tear. He is having frequent falls of the last 4-6 weeks and details several mechanisms for these falls including being lightheaded at times, but mostly complains of having falls in which his legs "give out" and then which she stays conscious. He denies any chest pain or shortness breath with these episodes. He states he can't even walk to the bathroom without falling. We did and she placed the patient recently in [facility], but the patient left due to conflicts with a staff member there. He stated therapy helped to some degree, but he did not stay compliant with any plan. Of note the patient is on a very high-dose of Neurontin at 1200 mg 3 times a day. He is on Depakote, presumably because of his seizure disorder although he is significantly under dosed as he should be on about 3000 mg per day to 6000 mg per day based on his weight and currently he is only taking 500 mg 3 times a day. He seems to be dosed at a range that might suggest its being used as a mood stabilizer. Interestingly, he said lumbar spinal stenosis for some time and has done some injections in the past but does not get any relief from steroid injections at this time. Get a neurosurgery consult earlier this month and the suggestion was for him to see ma s original neurosurgeon, Dr. Bojorquez in [place]. Thus far no one is agreed to do surgery on the patient's lower back. He's had extensive imaging workup for his falls, given that showed his right rotator cuff tear, but no evidence of carotid artery stenosis, no evidence of congestive heart failure with echocardiogram, and no other fractures or injuries noted. The patient really cannot point to any exacerbating factors. His history is extremely vague. He did request narcotics and states that he really thinks that should be added back. Past Medical History Medical History: 1. History of seizure disorder, patient states this was worked up in [place] and he does not recall an EEG. 2. Subclinical hypothyroidism. 3. History of migraine headaches, but notably he is on Depakote which can cause migraine headaches as well. 4. Diabetes mellitus type II, poorly controlled. 5. Hypertension. 6. Severe central canal stenosis, lumbar. 7. Right rotator cuff tear. 8. Tobacco abuse. 9. 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 Surgical History: 1. History of cataract surgery. 2. History of back surgery. 3. History of bladder surgery. 4. Right knee surgery 2. Family History: Reviewed an Not Pertinent Pertinent Family History: Denies any family history of heart disease. Past Social History: He smokes but states he is trying to quit, used to drink alcohol. Used to use drugs. Lives with his here in [place]. He is a primary caregiver for his . He has 1 daughter described as healthy and has stepchildren. Tobacco Use: Current Every Day Smoker In the Past 12 Months, Have Used or Abuse Any of the Following Substance: None Alcohol Use: None Medication / Allergies Home Medications: Home Medications Medication Instructions Recorded Confirmed Type Aspirin [Aspir-Low] 81 mg PO DAILY 09/17/16 08/23/18 History Multivit-Min/Iron Fum/Folic AC 1 ea PO DAILY tab 11/06/16 08/23/18 History [Monocaps Tablet] divalproex 500 mg tablet,delayed 500 mg PO TID #270 tab 06/26/18 08/23/18 Rx release gabapentin 600 mg tablet 1,200 mg PO TID #540 tab 06/26/18 08/23/18 Rx Acetaminophen [Tylenol 8 Hour] 650 mg PO Q6H PRN #90 tablet.er 08/07/18 08/22/18 Rx Aspirin/Acetaminophen/Caffeine 1 ea PO Q6H PRN tab 08/07/18 08/23/18 Rx [Excedrin Migrane tab] Lisinopril [Prinivil Tab] 5 mg PO DAILY tab 08/07/18 08/23/18 Rx Venlafaxine HCl ER [Effexor Xr] 150 mg PO BID cap.er.24h 08/07/18 08/23/18 Rx metFORMIN Tab [Glucophage Tab] 500 mg PO DAILY tab 08/07/18 08/23/18 Rx Allergies/Adverse Reactions: Allergies Allergy/AdvReac Type Severity Reaction Status Date / Time hydromorphone Allergy NAUSEA Verified 08/23/18 22:36 PAIN CONTRACT Allergy Unknown NOT Uncoded 08/23/18 22:36 APPLICABLE Review of Systems - Review of Systems All Systems: Reviewed & No Additional Complaints Except as Stated (I did a 12 point review systems and it was negative other than that discussed below and in the history of present illness.) - Respiratory Respiratory: REPORTS: Negative System Review - Cardiovascular Cardiovascular: REPORTS: Negative System Review - Gastrointestinal Gastrointestinal / Abdominal: REPORTS: Other (Complains of difficulty getting to the restroom on time with loose stools. This is been a chronic complaint of the patient in the clinic as well.) - Genitourinary Genitourinary: REPORTS: Other (Complains of urinary incontinence. I reviewed his record, these had urinary incontinence dating back to 2017 when he complained of this in our clinic visit.) Exam - Vitals Vital Signs: Vital Signs Temperature 96.9 F Temperature Source Temporal Artery Scan Pulse Rate [Pulse Oximeter] 79 Pulse Rate 78 Respiratory Rate 20 Blood Pressure [Left Arm] 97/76 Blood Pressure 89/71 Pulse Ox 94 Oxygen Delivery Method Room Air Height 5 ft 10 in Weight 241 lb 9.6 oz - General General Appearance: No Acute Distress, Cooperative, Obese - Head Head Exam: Normal Inspection, Normocephalic, Atraumatic - Eye Eye Exam: POSITIVE: No Scleral Icterus - ENT ENT Exam: POSITIVE: Mucous Membranes Moist - Neck Neck Exam: Normal Inspection, No Tenderness, No Lymphadenopathy, No Thyromegaly, JVP is not Raised - Respiratory Respiratory Exam: POSITIVE: Clear to Auscultation - Bilaterally, Breathing Non Labored, Normal to Percussion and Palpation - Cardiovascular Cardiovascular Exam: POSITIVE: RRR, No Murmur, No Clicks, No Gallops, No Rubs, No JVD - GI/Abdominal GI/Abdominal Exam: POSITIVE: Normal Bowel Sounds, Non Tender, Non Distended, Soft - Rectal Rectal Exam: POSITIVE: Deferred - External Exam: POSITIVE: Deferred Exam: POSITIVE: Deferred - Extremities Extremities Exam: POSITIVE: No Clubbing Present, No Edema Present, No Cyanosis Present - Back Back Exam: POSITIVE: No CVA Tenderness - Neurological Neurological Exam: POSITIVE: Alert, Oriented x 3, No Facial Droop, Speech Intact / Clear, Moves All Extremities Equally - Psychiatric Psychiatric Exam: POSITIVE: Anxious - Integumentary Integumentary Exam: POSITIVE: Normal Color, Warm, Dry, Intact Results - Labs CBC and BMP: 08/23/18 22:15 08/23/18 22:15 Additional Lab Results: Laboratory Results 08/23/18 08/23/18 22:15 22:15 WBC 10.36 RBC 4.33 L Hgb 13.7 L Hct 39.5 L MCV 91.2 H MCH 31.6 H MCHC 34.7 RDW Std Deviation 44.9 RDW Coeff of Darci 13.7 Plt Count 238 MPV 10.8 Immature Gran % (Auto) 0.6 Neut % (Auto) 60.4 Lymph % (Auto) 28.5 [place] % (Auto) 7.9 Eos % (Auto) 2.0 Baso % (Auto) 0.6 Immature Gran # (Auto) 0.06 Neut # (Auto) 6.26 Lymph # (Auto) 2.95 [place] # (Auto) 0.82 H Eos # (Auto) 0.21 Baso # (Auto) 0.06 WBC Morphology Comment Normal morphology Plt Morphology Comment Normal morphology RBC Morph Comment Normal morphology Sodium 137 Potassium 4.0 Chloride 105 Carbon Dioxide 23 Anion Gap 9 BUN 23 H Creatinine 1.1 Estimated GFR > 60 BUN/Creatinine Ratio 20.90 H Glucose 142 H Calculated Osmolality 289.0 Calcium 8.8 Total Bilirubin 0.5 AST 57 ALT 64 Alkaline Phosphatase 88 Total Protein 6.5 Albumin 4.2 Globulin 2.3 L Albumin/Globulin Ratio 1.80 - EKG Data -: EKG Interpreted by Me (From 08/22/2018) Rate: Normal EKG Shows Normal: Sinus Rhythm - Imaging Status: Report Reviewed by Me (Shoulder x-ray read as negative.) Assessment and Plan - Patient Problems (1) Fall Current Visit: Yes Status: Acute Code(s): W19.XXXA - Unspecified fall, initial encounter Qualifiers: Encounter type: initial encounter Qualified Code(s): W19.XXXA - Unspecified fall, initial encounter (2) Weakness Current Visit: Yes Status: Acute Code(s): R53.1 - Weakness (3) Bipolar disorder Current Visit: Yes Status: Acute Code(s): F31.9 - Bipolar disorder, unspecified Qualifiers: Active/Remission status: remission status unspecified Qualified Code(s): F31.9 - Bipolar disorder, unspecified (4) Hypertension Current Visit: Yes Status: Acute Code(s): I10 - Essential (primary) hypertension Qualifiers: Hypertension type: essential hypertension Qualified Code(s): I10 - Essential (primary) hypertension (5) Spinal stenosis, lumbar Current Visit: Yes Status: Acute Code(s): M48.061 - Spinal stenosis, lumbar region without neurogenic claudication Qualifiers: Neurogenic claudication status: without neurogenic claudication Qualified Code(s): M48.061 - Spinal stenosis, lumbar region without neurogenic claudication (6) Personal history of seizure disorder Current Visit: Yes Status: Chronic Onset Date: 11/07/16 Code(s): Z86.69 - Personal history of other diseases of the nervous system and sense organs - Assessment / Plan Additional Assessment/Plan Details: Admit the patient. PT and OT for weakness and falls. I think the falls could be multifactorial as they generally are in patient's. Given the lower blood pressures in a patient with hypertension, and going to hold off on his VALERIE inhibitor, and I will get orthostatics. We'll give the patient some IV fluids. I think we should go ahead and proceed with a stress test to make sure there is no evidence of coronary artery disease. Carotid artery disease seems less likely given negative ultrasound done recently this month (negative carotid Dopplers). Ataxia is listed as a side effect of Depakote. I'm not so sure about the seizure disorder diagnosis. He is given the history consistently that he is only had 2 prior seizures, and I don't know when these were or what circumstances work, but is not had any in some time and his dose seems inconsistent with his seizure management dose and more consistent with bipolar disorder as a mood stabilizer. His level on 2 separate occasions has been 50 which is on the exact low edge of therapeutic range. His Neurontin dose at 3600 mg every 24 hours has little too high for my comfort. I think that may be causing some issues as well in regards to his falls. I think that the patient would benefit from reduction in this medication, by at least 50% now and watch carefully for any withdrawal seizures. If he tolerates dose reduction, then I think this should be titrated slowly and reduced and discontinued entirely. Patient's diabetes is poorly controlled. He could be developing significant neuropathy, and he may need some nerve conduction studies to look at this further, but I will go ahead and her sliding scale insulin and hold off on m etformin. Blood sugars before meals and at bedtime. The patient may likely benefit from an EEG and neurology workup not only for his falls but for this history of seizures as well. Smoking cessation education and nicotine patch. His symptoms of urinary incontinence and bowel dysfunction or chronic in nature and I do not think a auto claim representative of a cauda equina syndrome. He's had a recent lumbar spine scanning that did not show any acute urgent need for lumbar decompression. That being said, I think if we can eliminate some of these other factors, he might benefit from neurosurgery evaluation and possible decompression of his spinal stenosis and lumbar spine. I am not going to start narcotics. Complex, multifocal causes for fall, including medications, probable medical noncompliance, lumbar stenosis, deconditioning, possible coronary artery disease, amongst other issues.
[2018-08-24] MEDS ORDERED: Naproxen Tab 500 MG TAB PO PRN (00:42)
[2018-08-24] MEDS: Sodium Chloride 0.9% 1,000 ML PRIMARY IV SCH ×3 (00:56→23:19)
--- NOTE | 2018-08-24 04:25 | PDOC ---
General Adult HPI - General Chief Complaint: Neck / Back Complaint Stated Complaint: frequent falls; unable to care for himself; chronic back and shoulder pain Date Seen by Provider: 08/23/18 Time Seen by Provider: 23:45 Source: POSITIVE: Patient, EMS, Old records Exam Limitations: POSITIVE: No limitations Nurse's Notes Reviewed & Considered: Yes EMS Report Reviewed & Considered: Verbal - History of Present Illness Initial Comment: The patient is a 62-year-old male who is brought to the emergency room by ambulance. Patient has a history of frequent falls due to chronic low back pain and upper leg pain with possibly some lower extremity weakness. He also complains of chronic pain to his right shoulder; he states he sustained a "spinatus injury "on 20 July when he fell. He states he has a many year history of progressive low back pain. He states he is on a pain contract due to his narcotic use. Patient was admitted to the hospital here on 08/03/2018 due to generalized debility, weakness and deconditioning. MRI of the back was done at that time which showed significant lumbar spinal stenosis. He had a neurosurgical consult at that time. Patient has been evaluated for his chronic back pain by Dr. Bojorquez. On 08/07/2018 patient was discharged to the [facility] in [place], but the patient and the staff at that facility could not get a long and the patient was reportedly discharged from that facility; part of the problem was the patient's disenchantment with its smoking policy. Patient was discharged to home and he is been falling frequently since. He was seen in our emergency room yesterday with history of falls. Patient reportedly was admitted to [facility] in the past with the patient was similarly discharged from that facility due to conflicts with the staff. Patient has a history of type II diabetes mellitus, for which she takes metformin. Patient denies injuring himself in any recent fall; he states he has difficulty getting back up after falls. He lives with a with many medical problems, who was not able to assist him. Have you received a tetanus shot in the past 10 years?: Yes Body Location Affected: REPORTS: Upper Extremity (R) (Right shoulder), Back Timing: REPORTS: Constant Duration: >1 week Severity: Moderate Quality: REPORTS: "Pain" Context: REPORTS: Sitting, Standing, Activity, Bending, Fall Modifying Factors: improves with: Nothing Similar Symptoms Previously: Yes Recent Care Received: REPORTS: Recently Seen, Treated by MD, Hospitalized (As above) Any Prior Injuries Related to Current Complaint?: Yes (injured right shoulder in a fall on 20 July) - Patient Home Medications Home Medications: Home Medications Aspirin [Aspir-Low] 81 mg PO DAILY 09/17/16 Multivit-Min/Iron Fum/Folic AC [Monocaps Tablet] 1 ea PO DAILY tab 11/06/16 divalproex 500 mg tablet,delayed release 500 mg PO TID #270 tab 06/26/18 gabapentin 600 mg tablet 1,200 mg PO TID #540 tab 06/26/18 Acetaminophen [Tylenol 8 Hour] 650 mg PO Q6H PRN #90 tablet.er 08/07/18 Aspirin/Acetaminophen/Caffeine [Excedrin Migrane tab] 1 ea PO Q6H PRN tab 08/07/18 Lisinopril [Prinivil Tab] 5 mg PO DAILY tab 08/07/18 Venlafaxine HCl ER [Effexor Xr] 150 mg PO BID cap.er.24h 08/07/18 metFORMIN Tab [Glucophage Tab] 500 mg PO DAILY tab 08/07/18 - Patient Allergies Allergies/Adverse Reactions: Allergies Allergy/AdvReac Type Severity Reaction Status Date / Time hydromorphone Allergy NAUSEA Verified 08/23/18 22:36 PAIN CONTRACT Allergy Unknown NOT Uncoded 08/23/18 22:36 APPLICABLE Past Medical History - heen HEENT History: Denies History Cardiovascular History: Hypertension Respiratory History: Denies History Gastrointestinal History: GERD Genitourinary History: Other (please comment) Additional Genitourinary History: SURGERY FOR BLADDER CANCER Endocrine History: Type 2 Diabetes (oral) Musculoskeletal History: Arthritis, Back Pain Neurological History: Seizures Blood Disorders: Denies History Psychiatric History: Depression History of Sexually Transmitted Diseases: No Male Reproductive History: Denies History Cancer History: Other (please comment) In Past Year Been Physically Harmed or Verbally Threatened: No History of MDRO: No Tobacco Use: Current Every Day Smoker Alcohol Use: Sober In the Past 12 Months, Have Used or Abuse Any Substance: None Previous Surgical History: Yes Type / Date of Surgery: RIGHT KNEE SCOPE X 2, TONSILS, BACK SURGERY, BLADDER SURGERY (FOR CANCER) Significant Family History: Heart disease Past Medical History Reviewed: Reviewed - No Changes ROS - Limitations ROS Limitations: No Limitations Constitution: REPORTS: Denies Symptoms Cardiovascular: REPORTS: Denies Cardiac Symptoms Respiratory: REPORTS: Denies Resp Symptoms Neurological: REPORTS: Denies Neuro Symptoms Gastrointestinal: REPORTS: Denies GI Symptoms Endocrine: REPORTS: Denies Symptoms Musculoskeletal: REPORTS: Back Pain, Joint Pain (Right shoulder) Genitourinary: REPORTS: Denies Symptoms Eyes: REPORTS: Denies Symptoms ENT: REPORTS: Denies Symptoms Skin: REPORTS: Denies Skin Symptoms Lympathic: REPORTS: Denies Lympathic Symptoms Immunologic: POSITIVE: Denies Symptoms Psychiatric: POSITIVE: Denies Psych Symptoms General Adult Exam - General Appearance General Appearance: POSITIVE: Alert, Cooperative, No Evidence of Trauma, Moderate Distress (Due to low back and right shoulder pain). NEGATIVE: No Acute Distress - HEENT HEENT: POSITIVE: Head Inspection Nml, Eyes Inspection Nml, Ears Inspection Nml, Nose Inspection Nml, Oral/Dental Inspect. Nml, Pharynx Inspect. Nml, PERRL, EOMI - Pupils Pupil Size: 4 mm: Bilateral (PERRLA) - Neck Neck: POSITIVE: Normal Inspection, Thyroid Normal - Respiratory Respiratory: POSITIVE: No Respiratory Distress, Breath Sounds Normal, Chest Non- Tender - Cardiovascular Cardiovascular: POSITIVE: Regular Rate & Rhythm, No Murmur, No Gallop, PMI Normal Peripheral Pulses: Radial (R): 2+, Radial (L): 2+, Dorsalis-pedis (R): 2+, Dorsalis-pedis (L): 2+ - Abdomen Abdomen: Soft: (All Quadrants), Normal Bowel Sounds: (All Quadrants), Denies Tenderness: (All Quadrants), No Splenomegaly: (All Quadrants), No Hepatomegaly: (All Quadrants), No Guarding: (All Quadrants), No Rebound: (All Quadrants), No Palpable Pulse: (All Quadrants), No Palpabale Mass: (All Quadrants), No Distention: (All Quadrants), No Rigidity: (All Quadrants) - Back Back: POSITIVE: Lumbosacral Tenderness. NEGATIVE: CVA Tenderness - Skin Skin: POSITIVE: Normal Color, Warm, Dry, No Rash - Extremities Extremity: Non-Tender: (LUE), (RLE), (LLE), Normal ROM: (LLE), (RLE), (LUE), Normal Inspection: (LLE), (RLE), (LUE), Pelvis Stable: (All Extremities), Normal Tendon Exam: (All Extremities) Additional Extremities Details: Examination right shoulder shows that the patient has pain on direct palpation over the anterolateral aspect of the right shoulder range of motion is limited in the right shoulder, especially in abduction no gross deformities. No effusions. No redness swelling or warmth. - Neurological / Psychological Neurological: POSITIVE: Affect Apporpriate, Oriented X3, knowledge management advisor Normal As Tested, Motor Normal, Sensation Normal Reflexes: Patellar (L): 1+, Radial (R): 1+ Images - Complete Complete: 1 - Chronic back pain 2 - Chronic shoulder pain General Adult Progress - Results Reviewed by me Xrays/CTs/US Reviewed by me: Yes Discussed with Radiologist: No Radiology Findings: X-ray right shoulder shows no fractures or dislocations Lab Results Reviewed by Me: Yes Lab Results:: Laboratory Results 08/23/18 08/23/18 22:15 22:15 WBC 10.36 RBC 4.33 L Hgb 13.7 L Hct 39.5 L MCV 91.2 H MCH 31.6 H MCHC 34.7 RDW Std Deviation 44.9 RDW Coeff of Darci 13.7 Plt Count 238 MPV 10.8 Immature Gran % (Auto) 0.6 Neut % (Auto) 60.4 Lymph % (Auto) 28.5 [place] % (Auto) 7.9 Eos % (Auto) 2.0 Baso % (Auto) 0.6 Immature Gran # (Auto) 0.06 Neut # (Auto) 6.26 Lymph # (Auto) 2.95 [place] # (Auto) 0.82 H Eos # (Auto) 0.21 Baso # (Auto) 0.06 WBC Morphology Comment Normal morphology Plt Morphology Comment Normal morphology RBC Morph Comment Normal morphology Sodium 137 Potassium 4.0 Chloride 105 Carbon Dioxide 23 Anion Gap 9 BUN 23 H Creatinine 1.1 Estimated GFR > 60 BUN/Creatinine Ratio 20.90 H Glucose 142 H Calculated Osmolality 289.0 Calcium 8.8 Total Bilirubin 0.5 AST 57 ALT 64 Alkaline Phosphatase 88 Total Protein 6.5 Albumin 4.2 Globulin 2.3 L Albumin/Globulin Ratio 1.80 CBC and BMP: 08/23/18 22:15 08/23/18 22:15 - Patient's Progress Pain Medication Addressed: POSITIVE: No School/Work Release Addressed: POSITIVE: Not Applicable Re-Examine Time: 23:45 Re-Examine Comment: Patient advised of the radiological and laboratory evaluation results. Patient has chronic shoulder and back pain with associated frequent falls. Patient unable to care for himself at home. Patient advised that he needs to cooperate with the personnel at extended care facilities; he has been admitted to 2 extended care facilities and has been discharged because of his lack of cooperation with the staff. Patient admitted; hopefully some type referral for long-term care can be made. Status: POSITIVE: Unchanged, Re-Examined Antibiotics Given: No - Consult Consult (If Yes, Name of Consulting MD & Time Called): Yes (Dr. Crump, hospitalist, [id number]) Consulting MD will see pt:: POSITIVE: [facility] [place] Admit Counseled: POSITIVE: Patient, RE: Lab Results, RE: Radiology Results, RE: DX, RE: Need for F/U Patient Care Time - Estimated PCT Patient Care Time (In Minutes): 50 Vital Signs - Recent Vital Signs Vital Signs: Vital Signs (Last 8 hours) Temp Pulse Pulse Resp BP BP Pulse Ox 08/23/18 23:42 97.6 F 78 20 89/71 93 08/23/18 23:34 94 08/23/18 21:16 96.8 F 83 20 97/73 93 - VS Reviewed Vital Signs Reviewed: Yes Discharge Clinical Impression: Chronic back pain, Physical deconditioning, Shoulder pain Discharge Disposition: Admit to Observation Condition: Good Date Decision to Admit to Inpatient: 08/23/18 Time Decision to Admit to Inpatient: 23:00
[2018-08-24] MEDS: Insulin Lispro Flexpen 300 UNIT/3 ML INSULN.PEN SUBCUT SCH ×4 (07:59→20:06)
[2018-08-24] MEDS: DIVALPROEX SODIUM 250 MG TABLET PO SCH ×3 (08:27→20:05)
[2018-08-24] MEDS: GABAPENTIN 300 MG CAPSULE PO SCH ×3 (08:27→20:05)
[2018-08-24] MEDS: VENLAFAXINE HCL XR 150 MG CAP PO SCH ×2 (08:27→20:05)
[2018-08-24] MEDS: ASPIRIN EC 81 MG TABLET PO SCH (08:27)
[2018-08-24] MEDS ORDERED: LISINOPRIL 5 MG TABLET PO SCH (09:00)
--- NOTE | 2018-08-24 09:36 | PDOC(PROG) ---
Interval History: Patient was admitted overnight please see my partner's note Dr. Crump. Patient denies chest pain nausea or vomiting. He said that he has visited with Dr. Bojorquez in the past and Dr. Euceda will not consider him for surgery. I said we will decrease his Neurontin from the max dose of 3600 to half of that. We will also evaluate his heart with a stress test the to make sure this is not a cause of his falls which I believe are multifactorial please see Dr. Crump's note which I concur with. If the stress test is negative patient will need a neurology follow-up as an outpatient for EEG and history of seizures. Also for disposition he will be discharged home he said he will have a meeting with his and go talk to the penitentiary were both of them the might consider going to the penitentiary nurse was in the room with me Objective : Data - Labs CBC and BMP: 08/23/18 22:15 08/23/18 22:15 Objective : Exam - General General Appearance: Cooperative - Respiratory Respiratory Exam: Clear to Auscultation - Bilaterally, Breathing Non Labored, Normal To Percussion, Normal to Percussion and Palpation - Cardiovascular Cardiovascular Exam: RRR, No Murmur, No Clicks, No Gallops, No Rubs, PMI Non- Displaced - Extremities Extremities Exam: No Clubbing Present, No Edema Present, No Cyanosis Present - Neurological Neurological Exam: Alert, Oriented x 3, No Facial Droop, Speech Intact / Clear, Moves All Extremities Equally Assessment and Plan - Patient Problems (1) Personal history of seizure disorder Current Visit: Yes Status: Chronic Onset Date: 11/07/16 Comment: See HPI Code(s): Z86.69 - Personal history of other diseases of the nervous system and sense organs (2) Fall Current Visit: Yes Status: Acute Comment: See HPI order PT OT multifactorial in nature we'll do stress test to rule out cardiac issues patient already had MRI of his his brain lower back carotid ultrasound in the past Code(s): W19.XXXA - Unspecified fall, initial encounter Qualifiers: Encounter type: initial encounter Qualified Code(s): W19.XXXA - Unspecified fall, initial encounter (3) Hypertension Current Visit: Yes Status: Acute Comment: Stable at present time Code(s): I10 - Essential (primary) hypertension Qualifiers: Hypertension type: essential hypertension Qualified Code(s): I10 - Essential (primary) hypertension (4) Spinal stenosis, lumbar Current Visit: Yes Status: Acute Code(s): M48.061 - Spinal stenosis, lumbar region without neurogenic claudication Qualifiers: Neurogenic claudication status: without neurogenic claudication Qualified Code(s): M48.061 - Spinal stenosis, lumbar region without neurogenic claudication (5) Weakness Current Visit: Yes Status: Acute Comment: Most likely from his spinal stenosis Code(s): R53.1 - Weakness (6) Bipolar disorder Current Visit: Yes Status: Acute Comment: On Depakote Code(s): F31.9 - Bipolar disorder, unspecified Qualifiers: Active/Remission status: remission status unspecified Qualified Code(s): F31.9 - Bipolar disorder, unspecified
[2018-08-25] MEDS: Insulin Lispro Flexpen 300 UNIT/3 ML INSULN.PEN SUBCUT SCH ×4 (07:54→20:54)
[2018-08-25] MEDS: GABAPENTIN 300 MG CAPSULE PO SCH ×3 (08:30→20:54)
[2018-08-25] MEDS: ASPIRIN EC 81 MG TABLET PO SCH (08:31)
[2018-08-25] MEDS: DIVALPROEX SODIUM 250 MG TABLET PO SCH ×3 (08:31→20:54)
[2018-08-25] MEDS: VENLAFAXINE HCL XR 150 MG CAP PO SCH ×2 (08:31→20:54)
--- NOTE | 2018-08-25 09:40 | PDOC(PROG) ---
Interval History: Clinically the same poor balance had some diarrhea some hot flashes from the contrast for the Lexiscan stress test better now compared to this morning Objective : Data - Labs CBC and BMP: 08/23/18 22:15 08/23/18 22:15 Objective : Exam - General General Appearance: No Acute Distress, Cooperative - Respiratory Respiratory Exam: Clear to Auscultation - Bilaterally, Breathing Non Labored, Normal To Percussion, Normal to Percussion and Palpation - Cardiovascular Cardiovascular Exam: RRR, No Murmur, No Clicks, No Gallops, No Rubs, PMI Non- Displaced - GI/Abdominal GI/Abdominal Exam: Normal Bowel Sounds, Non Tender, Non Distended, Soft, No Masses, No Hepatomegaly, No Splenomegaly, No Organomegaly - Extremities Extremities Exam: No Clubbing Present, No Edema Present Assessment and Plan - Patient Problems (1) Personal history of seizure disorder Current Visit: Yes Status: Chronic Onset Date: 11/07/16 Comment: On patient will need to follow-up with neurology he is unable to be going to follow up appointments on his own. He was at [facility] but he left he states. He states he needs to be going to another long term will have social service help out with this either in [place] or [place] Code(s): Z86.69 - Personal history of other diseases of the nervous system and sense organs (2) Fall Current Visit: Yes Status: Acute Comment: Most likely secondary to spinal stenosis and poor compliance peripheral neuropathy apparently Dr. Bojorquez already. Consult did with him and told him that he would not do any surgery. Stress test in a.m. to rule out the cardiac care etiology of his falls Code(s): W19.XXXA - Unspecified fall, initial encounter Qualifiers: Encounter type: initial encounter Qualified Code(s): W19.XXXA - Unspecified fall, initial encounter (3) Hypertension Current Visit: Yes Status: Acute Comment: Stable at present time Code(s): I10 - Essential (primary) hypertension Qualifiers: Hypertension type: essential hypertension Qualified Code(s): I10 - E ssential (primary) hypertension (4) Spinal stenosis, lumbar Current Visit: Yes Status: Acute Comment: Patient request to have a different opinion for consultation I will put in a consult for Dr. Gilliland Code(s): M48.061 - Spinal stenosis, lumbar region without neurogenic cl audication Qualifiers: Neurogenic claudication status: without neurogenic claudication Qualified Code(s): M48.061 - Spinal stenosis, lumbar region without neurogenic claudication (5) Weakness Current Visit: Yes Status: Acute Comment: PT OT Code(s): R53.1 - Weakness (6) Bipolar disorder Current Visit: Yes Status: Acute Comment: We'll call consult [facility] Code(s): F31.9 - Bipolar disorder, unspecified Qualifiers: Active/Remission status: remission status unspecified Qualified Code(s): F31.9 - Bipolar disorder, unspecified
--- NOTE | 2018-08-25 10:50 | PTI REPORT ---
Thank you for the referral of Constantino Hernandez. He was seen on 08/24/18 for an inpatient evaluation secondary to weakness and falls. SUBJECTIVE: The patient is a 62-year-old male. The patient reports that he lives with his in [place]. The patient reports he would like to have a spine surgery in his future. The patient reports he is in a lot of pain, but is unable to rate it on the verbal analog scale (0=no pain, 10=worst pain). The patient uses a four wheeled walker and is on oxygen at home but is unable to report how many liters. PAST MEDICAL HISTORY: Past medical history can be found in the patient's medical record. OBJECTIVE FINDINGS: General observations: Nursing okayed treatment prior to PT. The patient was supine in bed with bed alarm activated on two liters of oxygen with an IV. Bed mobility: The patient required mod to max assist x1 for supine to sit transfer to the edge of the bed with head of the bed elevated over 30 degrees. Seated edge of bed balance was fair. Transfers: The patient required min assist x1 for sit to stand transfer with a walker. Ambulation: The patient required mod assist x1 with walker for gait approximately 10 feet. The patient demonstrates a very unsteady gait pattern with buckling knees. Sensation: The patient demonstrates normal dermatomes in bilateral lower extremities and is able to slide heel up his leg for coordination bilaterally. Balance: The patient's standing balance is poor. The patient is very impulsive. ASSESSMENT: The patient is a 62-year-old male that presents with weakness and falls. The patient's balance is a concern. The patient would benefit from skilled therapy in order to improve balance, safety awareness, and functional mobility. It is not recommended that the patient return home at this time. The patient's prognosis for therapy is fair. Problem List: Decreased strength Decreased functional mobility Decreased balance Short-Term Goals: To be met by discharge from inpatient: Patient will be independent with all transfers. Patient will be able to ambulate 150 feet independently with least restrictive assistive device. Patient will be able to tolerate 15 minutes of activity in order to improve functional mobility. Long-Term Goals: To be met following discharge from inpatient: Patient will benefit from outpatient physical therapy. TREATMENT PLAN: Patient will be seen B.I.D during the week and one time per day over the weekend as an inpatient for therapeutic exercise, functional activity, neuromuscular reeducation, gait training, and modalities as needed. INITIAL TREATMENT: Treatment today consisted of the initial evaluation. The patient ambulated to the restroom with min to mod assist x1 for safety due to balance concerns with walker. The patient required max verbal cueing to decrease speed and impulsivity of actions. The patient was returned to his bed with bed alarm activated and call light within reach. MTDD
[2018-08-25] MEDS: Sodium Chloride 0.9% 1,000 ML PRIMARY IV SCH ×2 (11:56→18:08)
--- NOTE | 2018-08-25 12:58 | PT.PROG ---
Progress Note Progress Note: S. Patient stated that he is tired after the stress test however agreed to do some exercise in his room. O. Patient performed seated marches, heel toe raises, long arc quads, pillow squeezes, clam shells, isometric hamstring curls all x 15 bilaterally. Patient was left in chair with alarm and call light. A. Patient tolerated exercise well, he would continue to benefit from skilled therapy to increase strength, endurance and safety at this time. P. Continue POC.
--- NOTE | 2018-08-25 15:26 | PT.PROG ---
Progress Note Progress Note: S. patient stated that he is tired and doesn't feel up to a lot of therapy this afternoon, however agreed to go for a walk. O. Patient ambulated 150 feet around the nurses station then performed sit to stands x 5, long arc quads, marches and heel toe raises all x 15 bilaterally. Patient was left in his chair with alarm and call light. A. Patient tolerated therapy fair, he continues to be very impulsive and require frequent verbal cues to slow down and ambulate safely, he would continue to benefit from skilled therapy to increase safety awareness and increase strength at this time. P. Continue POC.
[2018-08-26] MEDS: Sodium Chloride 0.9% 1,000 ML PRIMARY IV SCH ×2 (04:19→12:24)
[2018-08-26] MEDS: Insulin Lispro Flexpen 300 UNIT/3 ML INSULN.PEN SUBCUT SCH ×5 (07:59→20:34)
--- NOTE | 2018-08-26 09:17 | STRESSTEST ---
[facility] Interpretive Statements 62 yo male with multiple falls portillo to rule out cardiac reasons neg trops will await pics no acute findings on stress portion [email or web address]
[2018-08-26] MEDS: ASPIRIN EC 81 MG TABLET PO SCH (09:26)
[2018-08-26] MEDS: GABAPENTIN 300 MG CAPSULE PO SCH ×3 (09:26→20:33)
[2018-08-26] MEDS: VENLAFAXINE HCL XR 150 MG CAP PO SCH ×2 (09:26→20:33)
[2018-08-26] MEDS: DIVALPROEX SODIUM 250 MG TABLET PO SCH ×3 (09:26→20:33)
--- NOTE | 2018-08-26 09:28 | PDOC(PROG) ---
Interval History: Patient has no complaints as we did a stress test this morning went uneventful. Objective : Data - Labs CBC and BMP: 08/23/18 22:15 08/23/18 22:15 Objective : Exam - General General Appearance: No Acute Distress - Respiratory Respiratory Exam: Clear to Auscultation - Bilaterally, Breathing Non Labored, Normal To Percussion, Normal to Percussion and Palpation - Cardiovascular Cardiovascular Exam: RRR, No Murmur, No Clicks, No Gallops, No Rubs, PMI Non- Displaced - GI/Abdominal GI/Abdominal Exam: Normal Bowel Sounds, Non Tender, Non Distended, Soft, No Masses, No Hepatomegaly, No Splenomegaly, No Organomegaly Assessment and Plan - Patient Problems (1) Personal history of seizure disorder Current Visit: Yes Status: Chronic Onset Date: 11/07/16 Comment: On Depakote as not had a neurology visit for follow-up Code(s): Z86.69 - Personal history of other diseases of the nervous system and sense organs (2) Fall Current Visit: Yes Status: Acute Code(s): W19.XXXA - Unspecified fall, initial encounter Qualifiers: Encounter type: initial encounter Qualified Code(s): W19.XXXA - Unspecified fall, initial encounter (3) Hypertension Current Visit: Yes Status: Acute Comment: Stable at present time Code(s): I10 - Essential (primary) hypertension Qualifiers: Hypertension type: essential hypertension Qualified Code(s): I10 - Essential (primary) hypertension (4) Spinal stenosis, lumbar Current Visit: Yes Status: Acute Comment: Patient wanted a second opinion and consult with Dr. Gilliland neurosurgery Code(s): M48.061 - Spinal stenosis, lumbar region without neurogenic claudication Qualifiers: Neurogenic claudication status: without neurogenic claudication Qualified Code(s): M48.061 - Spinal stenosis, lumbar region without neurogenic claudication (5) Weakness Current Visit: Yes Status: Acute Comment: Continue PTOT imbalance and generalized lower extremity weakness multif actorial spinal stenosis noncompliance peripheral neuropathy Code(s): R53.1 - Weakness (6) Bipolar disorder Current Visit: Yes Status: Acute Comment: Patient has not seen a psychiatrist I will consult [facility] Code(s): F31.9 - Bipolar disorder, unspecified Qualifiers: Active/Remission status: remission status unspecified Qualified Code(s): F31.9 - Bipolar disorder, unspecified
--- NOTE | 2018-08-26 10:49 | PTI REPORT ---
Thank you for the referral of Constantino Hernandez. He was seen on 08/25/18 for an occupational therapy inpatient evaluation secondary to falls and weakness. SUBJECTIVE: The patient is a 62-year-old male who is being seen secondary to falling at home. Prior to admission the patient had been admitted here at the hospital and was on swingbed for a while. The patient ended up moving to [facility] in [place]. The patient was discharged home approximately a week and a half ago and has fallen again. Prior to his first admission in the hospital, the patient was reported to have fallen 50+ times. The patient reports that he is bi-polar, he is diabetic, he has a bad back, and a right rotator cuff problem, all of which contribute to his difficulties and falls that he has been experiencing. PAST MEDICAL HISTORY: Past medical history can be found in the patient's medical record. OBJECTIVE FINDINGS: General observations: The patient needed to go to the bathroom as soon as the therapist arrived. It had been reported by staff that the patient has had a lot of diarrhea and frequent urination since he has been in the hospital. Transfers: The patient was able to come from sit to stand with mod assist. The patient had a lot of difficulty standing by himself. The patient then went to the bathroom; he was very unsteady with his balance and turns and was slightly impulsive. The patient was able to turn and sit down. The patient did have diarrhea and was dependent with wiping self, mainly because he had his oxygen and IVs on his hands. Ambulation: The patient was able to walk to the sink with contact guard to min assist for balance. The patient stood at sink with min assist. The patient kept bending over secondary to fatigue and weakness. Activities of daily living: The patient was able to brush teeth but has difficulty with coordination of hands. The patient does have neuropathy like symptoms in his bilateral hands. The patient requires mod assist for dressing lower extremities secondary to balance difficulties. The patient requires min assist for dressing upper extremities secondary to decreased right upper extremity range of motion and coordination with hands. Range of motion: The patient's right upper extremity range of motion is very limited. Strength: Strength in left upper extremity is 3+/5 for shoulder flexion and abduction, 4/5 for elbow flexion/extension, and 4/5 for wrist flexion/extension. On the right side the patient demonstrates strength of 1-/5 for shoulder flexion and abduction, 3/5 for elbow flexion/extension, and 3+/5 for wrist flexion/extension. Sensation: The patient reports numbness in both legs as well as both hands. Vision: The patient's vision has improved a little bit since being at home; more than likely to his Diabetes being more controlled at the hospital. ASSESSMENT: It is highly recommended that the patient continue with a 24-hour care type facility to assist with his medication management, Diabetes management, and to improve his overall strength and abilities. At this point the patient is not safe to complete functional transfers on his own secondary to decreased sensation in his upper and lower extremities as well as impulsivity. 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 Patient will be able to complete toilet transfers and toilet hygiene with stand by assist. Patient will be able to dress lower and upper extremities with stand by assist including set up. Patient will participate in a cognitive assessment. Long-Term Goals: To be met following discharge from inpatient: Patient will be placed in a 24-hour care facility to increase his safety and ability to care for himself. TREATMENT PLAN: Patient will be seen B.I.D during the week and one time per day over the weekend as an inpatient to address the above goals and objectives. INITIAL TREATMENT: Treatment today consisted of the initial evaluation activities only. MANISHA
--- NOTE | 2018-08-26 10:53 | OT PM DAY ---
Diagnosis : Weakness/Falls PM - Occupational Therapy S: The patient had a stress test so he was radioactive. We were not able to bring him down to the therapy gym. O: Treatment today took place in the room. We worked on upper extremity strengthening with kassy de la cruz: left upper extremity shoulder extension, shoulder adduction, horizontal abduction, biceps curls, and internal/external rotation. With the right upper extremity he performed biceps curls, triceps extension, and foam block squeezing. The patient performed 5 sit to stands with min assist after multiple attempts and safety cues to push off of chair as well as to reach back for the chair. The patient refused to reach back for the chair and usually plopped down in the chair. A: The patient would continue to benefit from strengthening as well as safety awareness. P: Continue seeing patient BID during the week and one time per day over the weekend for upper extremity strengthening, ADLs, and overall functional mobility. MTDD
--- NOTE | 2018-08-26 13:22 | DI ---
2 DAY LEXISCAN STRESS & REST MYOCARDIAL PERFUSION SCANS, 08/25/2018-08/26/2018: Clinical History: Chest pain. Previous Exam: None at this facility. Monitoring Physician: Dr. Nolan Genao. Dose: Stress dose: 37 mCi on 08/26/2018. Rest dose: 38 mCi on 08/25/2018. Quantitative Analysis: [employer] program without and with low dose limited CT chest scan attenuati on correction. Exam Quality: Excellent. Rejected Beats: Stress = 1%; Rest = 3%. HR: Stress = 75-78 b/m; Rest = 70-7 7 b/m. Left Ventricular Chamber Sizes: Normal at stress and rest. Transient Ischemic Dilatation Ratio: 0.91. Normal Arias TID <= 1.22; normal Lexiscan TID <= 1.33. LVEF: Stress: 83%. Rest: 75%. Myocardial Perfusion: Normal at stress and rest for the attenuated and non-attenuated corrected scans . Myocardial Wall Motion: Normal at stress and rest. Myocardial Thickening: Normal at stress and rest. Coronary Artery Calcifications: No coronary artery calcifications. Lungs: No lung nodules or enlarged nodes. Readin. Normal left ventricular chamber size. Transient ischemic dilatation ratio is normal at 0.91. 2. Normal stress and rest LVEF values of 83%, and 75%, respectively. 3. Normal stress and rest myocardial perfusion, wall motion, and thickening. 4. No coronary artery calcifications. No lung nodules or adenopathy.
--- NOTE | 2018-08-26 16:00 | OT.PROG ---
Progress Note Progress Note: pt refused therapy services this morning due to feeling unwell after stress test.
--- NOTE | 2018-08-26 16:37 | OT.PROG ---
Progress Note Progress Note: S: pt reported he did not like [facility] in [place]. He stated he wants to live at a place with his , dog and cat. He did say he wanted to participate in therapy although he refused to do anything at this time. It was discussed with him about putting him on a schedule for BM's as he appears to possibly be choosing not to make it to restroom. O: No therapy administered this afternoon. A: Due to pt's inability to care for himself, including ADL's & Decline in hygiene and LE weakness and vertigo makes him an increase fall risk at would benefit from 24 hr care. P: continue per POC.
--- NOTE | 2018-08-26 16:38 | PT.PROG ---
Progress Note Progress Note: Patient refsed therapy this afternoon, due to not feeling well after his stress test.
[2018-08-27] MEDS: Sodium Chloride 0.9% 1,000 ML PRIMARY IV SCH ×2 (02:26→12:49)
[2018-08-27] MEDS: Insulin Lispro Flexpen 300 UNIT/3 ML INSULN.PEN SUBCUT SCH ×4 (07:38→20:59)
[2018-08-27] MEDS ORDERED: FUROSEMIDE 10 MG/1 ML - 2 ML VIAL IVP ONE (09:03)
[2018-08-27] MEDS: GABAPENTIN 300 MG CAPSULE PO SCH ×3 (09:25→20:59)
[2018-08-27] MEDS: VENLAFAXINE HCL XR 150 MG CAP PO SCH ×2 (09:25→20:59)
[2018-08-27] MEDS: ASPIRIN EC 81 MG TABLET PO SCH (09:25)
[2018-08-27] MEDS: DIVALPROEX SODIUM 250 MG TABLET PO SCH ×3 (09:25→20:59)
--- NOTE | 2018-08-27 09:55 | PDOC(PROG) ---
Interval History: Patient has no complaints no nausea no vomiting no chest pain Objective : Data - Labs CBC and BMP: 08/23/18 22:15 08/23/18 22:15 Objective : Exam - General General Appearance: No Acute Distress, Cooperative - Respiratory Respiratory Exam: Clear to Auscultation - Bilaterally, Breathing Non Labored, Normal To Percussion, Normal to Percussion and Palpation - Cardiovascular Cardiovascular Exam: RRR, No Murmur, No Clicks, No Gallops, No Rubs, PMI Non- Displaced - GI/Abdominal GI/Abdominal Exam: Normal Bowel Sounds, Non Tender, Non Distended, Soft, No Masses, No Hepatomegaly, No Splenomegaly, No Organomegaly - Extremities Extremities Exam: No Clubbing Present, No Edema Present, No Cyanosis Present - Neurological Neurological Exam: Alert, Oriented x 3, No Facial Droop, Speech Intact / Clear, Moves All Extremities Equally - Psychiatric Psychiatric Exam: Normal Affect, Normal Mood Assessment and Plan - Patient Problems (1) Personal history of seizure disorder Current Visit: Yes Status: Chronic Onset Date: 11/07/16 Comment: On Artie has not had a seizure for a long time and needs to follow- up with neurology as an outpatient considering his imbalance as well Code(s): Z86.69 - Personal history of other diseases of the nervous system and sense organs (2) Fall Current Visit: Yes Status: Acute Comment: Multiple falls multifactorial in etiology cardiac stress test was negative most of the workup was negative except for spinal stenosis which is a chronic condition. Placement in progress for group home since occupational therapy and physical therapy recommended that the patient is not safe to be on his own and manage himself manage his medication patient agrees Code(s): W19.XXXA - Unspecified fall, initial encounter Qualifiers: Encounter type: initial encounter Qualified Code(s): W19.XXXA - Unspecified fall, initial encounter (3) Hypertension Current Visit: Yes Status: Acute Comment: Stable Code(s): I10 - Essential (primary) hypertension Qualifiers: Hypertension type: essential hypertension Qualified Code(s): I10 - Essential (primary) hypertension (4) Spinal stenosis, lumbar Current Visit: Yes Status: Acute Comment: Requested consult from Dr. Gilliland I have told his PA yesterday 08/26/2018 Saniya mittal Code(s): M48.061 - Spinal stenosis, lumbar region without neurogenic claudication Qualifiers: Neurogenic claudication status: without neurogenic claudication Qualified Code(s): M48.061 - Spinal stenosis, lumbar region without neurogenic claudication (5) Weakness Current Visit: Yes Status: Acute Code(s): R53.1 - Weakness (6) Bipolar disorder Current Visit: Yes Status: Acute Code(s): F31.9 - Bipolar disorder, unspecified Qualifiers: Active/Remission status: remission status unspecified Qualified Code(s): F31.9 - Bipolar disorder, unspecified
--- NOTE | 2018-08-27 11:49 | OT.PROG ---
Progress Note Progress Note: S: pt stated that he was willing to complete therapy and was feeling better. O: tx consisted of seated ADL task of dressing. pt completed donning LE pants independently and shoes. pt is unable at this time to adonis socks. pt completed standing toileting task independently but with CGA fro safety due to pts poor balance. A: pt is able to dress himself when he is motivated. pt can toilet himself but is at risk of falling when completing transfers due to pts poor balance and lack of safety awareness. P: continue POC
--- NOTE | 2018-08-27 16:04 | OT.PROG ---
Progress Note Progress Note: S: pt stated he thought he wanted to go back to [place] where his is located. He did report pain in R shoulder. O: pt was seen in his room and completed UE exercises with GTB in all planes x20 to increase his UE strengthening. All exercises performed with RUE below 90 deg as it is painful above 90 deg. He was left upright in chair with alarm on. A: pt limited with ROM/strength in R UE most likely due to RTC involvement. He was cooperative and willing to work today. He was educated on importance of go ing to restroom and calling for nursing before he has an accident. He remains a fall risk. P: continue per POC.
--- NOTE | 2018-08-27 16:33 | PT.PROG ---
Progress Note Progress Note: S. Patient stated that he would go for walk. O. Patient ambulated 300 feet around the nurses station. He was left in his chair with alarm and call light. A. Patient required one seated rest break during ambulation, after his seated rest break he struggled with his balance and required mod assist to correct hims elf. Patient would continue to benefit from skilled therapy to increase strength, endurance and safety at this time. P. Continue POC.
--- NOTE | 2018-08-27 17:31 | PT.PROG ---
Progress Note Progress Note: S. patient agreed to do some exercises this afternoon. O. Patient ambulated 100 feet in the braga then returned to his room where he performed seated marches, heel toe raises, long arc quads, and sit stands all x 10. A. Patient tolerated therapy fair, he was able to perform all exercises, he continues to be weak and struggle with balance however. he would continue to benefit from skilled therapy at this time. P. Continue POC.
[2018-08-28] MEDS: Sodium Chloride 0.9% 1,000 ML PRIMARY IV SCH (00:28)
[2018-08-28] MEDS: Insulin Lispro Flexpen 300 UNIT/3 ML INSULN.PEN SUBCUT SCH ×4 (07:46→21:15)
[2018-08-28] MEDS: ASPIRIN EC 81 MG TABLET PO SCH (08:15)
[2018-08-28] MEDS: DIVALPROEX SODIUM 250 MG TABLET PO SCH ×3 (08:15→21:14)
[2018-08-28] MEDS: GABAPENTIN 300 MG CAPSULE PO SCH ×3 (08:15→21:15)
[2018-08-28] MEDS: VENLAFAXINE HCL XR 150 MG CAP PO SCH ×2 (08:15→21:14)
--- NOTE | 2018-08-28 09:44 | DCSUMMARY ---
Hospitalization Summary Hospital Course: Final Discharge Diagnosis: Current Visit Problems Problem Status Onset Code Fall Acute W19.XXXA Hypertension Acute I10 Spinal stenosis, lumbar Acute M48.061 Weakness Acute R53.1 Bipolar disorder Acute F31.9 Chronic back pain Acute M54.9, G89.29 Physical deconditioning Acute R53.81 Shoulder pain Acute M25.519 Personal history of seizure disorder Chronic 11/07/16 Z86.69 Diagnostic Data, Laboratory Data, and Procedures of Signifigance: CBC and BMP 08/23/18 22:15 08/23/18 22:15 History and Physical pertinent to Admission: Past Medical History Medical History: 1. History of seizure disorder, patient states this was worked up in [place] and he does not recall an EEG. 2. Subclinical hypothyroidism. 3. History of migraine headaches, but notably he is on Depakote which can cause migraine headaches as well. 4. Diabetes mellitus type II, poorly controlled. 5. Hypertension. 6. Severe central canal stenosis, lumbar. 7. Right rotator cuff tear. 8. Tobacco abuse. 9. 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 Surgical History: 1. History of cataract surgery. 2. History of back surgery. 3. History of bladder surgery. 4. Right knee surgery 2. Family History: Reviewed an Not Pertinent Pertinent Family History: Denies any family history of heart disease. Past Social History: He smokes but states he is trying to quit, used to drink alcohol. Used to use drugs. Lives with his here in [place]. He is a primary caregiver for his . He has 1 daughter described as healthy and has stepchildren. Tobacco Use: Current Every Day Smoker Course of Hospitalization: This very nice 62-year-old gentleman with congenital lumbar spinal stenosis also history of multiple falls was admitted for multiple falls over the last few days prior to admission. He also has known rotator cuff tear.. During his hospital stay Lexiscan stress test was performed which was negative ruling out any cardiac causes. He was also on max dose of Neurontin. And he is also on Depakote he says for his seizure disorder but also takes it for his bipolar. We have decreased the amount of Neurontin in half patient has been having regular stools and he is not incontinent of urine or stools are present time over the last few days he's been doing really well with physical and occupational therapy he does see Dr. Bojorquez which is his neurosurgeon. Also had a second opinion by Dr. Gilliland. Not recommending any surgery at present time. I also had him evaluated by [facility] and is a bipolar is stable no change in medications he also had extensive imaging workup by Dr. Bojorquez no evidence of congestive heart failure on echo or carotid stenosis his history is extremely vague. Our occupational therapist recommended patient unable to take care of self and recommended the assisted. Patient was already at [facility] in [place] but signed himself out. He did have 1 positive heme stool recommended he follow-up as an outpatient or when he goes to [place] for possible colonoscopy patient understands this. On the date of discharge, the patient was examined: Gen.: [No acute distress, alert, nontoxic] Heart: [Regular rate and rhythm, no murmurs, clicks, gallops, or rubs] Lungs: [Clear to auscultation bilaterally, breathing is nonlabored] Abdomen/GI: [Normal tones on auscultation, soft, nontender, nondistended] Musculoskeletal/extremities: [No clubbing, cyanosis, or edema] Vitals reviewed and are listed below Vital Signs (24 hrs) 08/27/18 11:00 08/27/18 11:03 08/27/18 15:00 Temperature 97.3 F Pulse Rate 74 80 Pulse Rate [Apical] Pulse Rate [Pulse Oximeter] 78 Respiratory Rate 16 Blood Pressure [Left Arm] 119/64 Pulse Ox 93 08/27/18 15:42 08/27/18 19:00 08/27/18 19:09 Temperature 97.9 F 98.2 F Pulse Rate Pulse Rate [Apical] 80 Pulse Rate [Pulse Oximeter] 73 78 Respiratory Rate 20 20 Blood Pressure [Left Arm] 162/87 136/83 Pulse Ox 92 92 08/27/18 23:00 08/28/18 00:13 08/28/18 03:00 Temperature 98.0 F Pulse Rate 66 Pulse Rate [Apical] Pulse Rate [Pulse Oximeter] 65 Respiratory Rate 21 Blood Pressure [Left Arm] 146/90 Pulse Ox 96 96 08/28/18 04:04 08/28/18 07:00 08/28/18 07:37 Temperature 97.8 F 96.9 F Pulse Rate 79 Pulse Rate [Apical] 80 Pulse Rate [Pulse Oximeter] 75 77 77 Respiratory Rate 20 20 Blood Pressure [Left Arm] 149/91 145/88 Pulse Ox 93 96 Assessment and Plan: 1. As per discharge assessments above 2. Disposition: [facility] in [facility] they will come and pick him up as arranged by social work job titles 3. Condition on discharge, stable and improved. 4. Diet: regular diet 5. Activities: resume normal activities 6. Follow-Up: 1. [PCP] 2. 7. Medications at the Time of Discharge: Home Medications Medication Instructions Recorded Confirmed Type Multivit-Min/Iron Fum/Folic AC 1 ea PO DAILY tab 11/06/16 08/23/18 History [Monocaps Tablet] divalproex 500 mg tablet,delayed 500 mg PO TID #270 tab 06/26/18 08/23/18 Rx release Acetaminophen [Tylenol 8 Hour] 650 mg PO Q6H PRN #90 tablet.er 08/07/18 08/22/18 Rx Aspirin/Acetaminophen/Caffeine 1 ea PO Q6H PRN tab 08/07/18 08/23/18 Rx [Excedrin Migrane tab] Lisinopril [Prinivil Tab] 5 mg PO DAILY tab 08/07/18 08/23/18 Rx Venlafaxine HCl ER [Effexor Xr] 150 mg PO BID cap.er.24h 08/07/18 08/23/18 Rx metFORMIN Tab [Glucophage Tab] 500 mg PO DAILY tab 08/07/18 08/23/18 Rx Gabapentin [Neurontin] 600 mg PO TID cap 08/28/18 Rx Aspirin 81 mg by mouth daily 8. Time, care, counseling and coordination of care for this discharge is greater than 30 minutes. Exam - Vitals Vital Signs: Vital Signs Temperature 96.9 F Temperature Source Temporal Artery Scan Pulse Rate [Apical] 80 Pulse Rate [Pulse Oximeter] 77 Pulse Rate [Standing] 87 Pulse Rate [Sitting] 88 Pulse Rate [Lying] 86 Pulse Rate 79 Respiratory Rate 20 Blood Pressure [Standing] 161/88 Blood Pressure [Sitting] 158/103 Blood Pressure [Lying] 166/85 Blood Pressure [Left Arm] 145/88 Blood Pressure 89/71 Pulse Ox 96 Oxygen Flow Rate 2 Oxygen Delivery Method Room Air Height 5 ft 10 in Weight 237 lb 12.8 oz Patient Problems - Patient Problem List (1) Personal history of seizure disorder Current Visit: Yes Status: Chronic Onset Date: 11/07/16 Comment: taking Divalproex Na 500mg tid Question if the Gabapentin was also started for seizure control, or for pain control for neuropathic pain. no report of recurrent seizures. Code(s): Z86.69 - Personal history of other diseases of the nervous system and sense organs Category: Medical (2) Fall Current Visit: Yes Status: Acute Code(s): W19.XXXA - Unspecified fall, initial encounter Qualifiers: Encounter type: initial encounter Qualified Code(s): W19.XXXA - Unspecified fall, initial encounter Category: Medical (3) Hypertension Current Visit: Yes Status: Acute Code(s): I10 - Essential (primary) hype rtension Qualifiers: Hypertension type: essential hypertension Qualified Code(s): I10 - Essential (primary) hypertension Category: Medical (4) Spinal stenosis, lumbar Current Visit: Yes Status: Acute Code(s): M48.061 - Spinal stenosis, lumbar region without neurogenic claudication Qualifiers: Neurogenic claudication status: without neurogenic claudication Qualified Code(s): M48.061 - Spinal stenosis, lumbar region without neurogenic claudication Category: Medical (5) Weakness Current Visit: Yes Status: Acute Code(s): R53.1 - Weakness Category: Medical (6) Bipolar disorder Current Visit: Yes Status: Acute Code(s): F31.9 - Bipolar disorder, unspecified Qualifiers: Active/Remission status: remission status unspecified Qualified Code(s): F31.9 - Bipolar disorder, unspecified Category: Medical
--- NOTE | 2018-08-28 11:57 | OT.PROG ---
Progress Note Progress Note: S: pt stated that he was feeling okay and his upper back was feeling better. O: tx consisted of seated UE and LE dressing. pt completed UE dressing with MIN A for leads management, and LE dressing independently with SBA for safety. pt needed CGA when standing up to completed LE dressing due to balance deficits. A: pt is tolerating session well. pt needs additional time to complete dressing independently. P: continue POC
--- NOTE | 2018-08-28 14:55 | PT.PROG ---
Progress Note Progress Note: S. Patient stated that he would go for a walk this afternoon. O. Patient ambulated 300 feet around the nurses station then performed sit to stands x 3 and was left with alarm and call light. A. Patient tolerated ambulation fair, he continues to struggle with weakness and balance deficits to increase strength, mobility and safety. P. Continue POC.
--- NOTE | 2018-08-28 16:02 | OT.PROG ---
Progress Note Progress Note: S: pt reported that he will be leaving for [place] tomorrow. He did not want to go to therapy gym today but did agree to participate in room. O: pt was seen in his room and was in supine position. He attempted to sit x3 with no success. Pt then completed it succesfully on 4th attempt with some cuing. He also donned shoes Ind after 5-6 attempts. He completed x4 sit to stands throughout therapy today. He was educated on standing to sitting transition into walker. He was returned to his room and completed bed mobility INd. He was left upright in bed with call light within reach. A: pt does have difficulty with simple ALD's but is usually able to complete after a period of time. Maintain CGA with gait belt with all transfers as he is still very unsafe. P: continue per pOC.
--- NOTE | 2018-08-28 16:36 | PT.PROG ---
Progress Note Progress Note: S. Patient stated he is feeling alright, he agreed to go for a walk. O. Patient ambulated 300 feet around the nurses station then stepped up onto the stair 5 times. Patient was left in his room with alarm and call light. A. Patient tolerated therapy fair, he continues to struggle with balance deficits and weakness, he would benefit from 24 hour care. P. Continue POC.
[2018-08-29 07:19] VITALS: RESP 24
[2018-08-29] MEDS: VENLAFAXINE HCL XR 150 MG CAP PO SCH (08:32)
[2018-08-29] MEDS: Insulin Lispro Flexpen 300 UNIT/3 ML INSULN.PEN SUBCUT SCH (08:32)
[2018-08-29] MEDS: GABAPENTIN 300 MG CAPSULE PO SCH (08:32)
[2018-08-29] MEDS: DIVALPROEX SODIUM 250 MG TABLET PO SCH (08:32)
[2018-08-29] MEDS: ASPIRIN EC 81 MG TABLET PO SCH (08:32)
--- NOTE | 2018-08-29 11:14 | OT.PROG ---
Progress Note Progress Note: pt refused therapy services this morning due to lack of sleep and wanting to rest before being transferred to [place].
[2018-08-29 11:36] VITALS: BP 132/73; TEMP 97.7; O2SAT 92
== END 2018-08-29 13:30 | DRG 552 ==
LOC: MED/SURG 21:15 → ER 21:15 → MED/SURG 23:45
PROVIDERS: ADMIT Family Medicine; ATTEND Internal Medicine